=== PATIENT | female | born 1945 | race Caucasian/White ===

== ENCOUNTER 2016-10-02 14:18 | Inpatient (IN) ==
[2016-10-02] MEDS ORDERED: ASPIRIN PO STA (14:35)
[2016-10-02] MEDS ORDERED: XOPENEX NEB INH ONE (14:35)
--- NOTE | 2016-10-02 14:38 | PROVIDER DOCUMENTATION ---
HPI-Respiratory General - General Chief Complaint: Shortness of Breath Stated Complaint: sob Time Seen by Provider: 10/02/16 14:33 Source: patient Allergies/Adverse Reactions: Patient Allergies Allergy/AdvReac Type Severity Reaction Status Date / Time Sulfa (Sulfonamide Allergy Severe RASH Verified 10/02/16 15:31 Antibiotics) latex Allergy HIVES Verified 10/02/16 15:31 sulfamethoxazole Allergy RASH Verified 10/02/16 15:31 [From Bactrim] trimethoprim [From Bactrim] Allergy RASH Verified 10/02/16 15:31 Penicillins AdvReac Severe RASH Verified 10/02/16 15:31 Home Medications: Home Medication List Medication Instructions Recorded Confirmed Last Taken Type Magnesium Oxide [Mag-Ox] 400 mg PO DAILY 11/16/13 10/02/16 10/02/16 History Aspirin 81 mg PO DAILY 04/15/16 10/02/16 10/02/16 History Bisoprolol/Hctz [Ziac 5/6.25 mg] 1 each PO DAILY 04/15/16 10/02/16 10/02/16 History Ergocalciferol (Vitamin D2) 2,000 unit PO DAILY 04/15/16 10/02/16 10/02/16 History [Vitamin D2] Metformin [Glucophage] 500 mg PO WBREAKFAST 04/15/16 10/02/16 04/15/16 10:00 History Vitamin B Complex 1 each PO DAILY 04/15/16 10/02/16 10/02/16 History Dasatinib [Sprycel] 100 mg PO DAILY 10/02/16 10/02/16 10/02/16 History - History of Present Illness-Resp Nature of Presenting Problem: patient is a 70 y/o F that presents to the ER with shortness of breath that has progressively gotten worse over the week. She reports breathing is worse with exertion and laying flat. She denies fever/chills, cough, or chest pain. She reports that she feels like her lungs are being pulled down to her stomach. Her o2 saturation at triage was 74% on RA. patient reports symptoms have gotten worse past few days. She has seen who told her to take Mucinex. Today she didn't have it. Severity in ED: reports: moderate, severe Onset/Duration: reports: gradual, 4 days ago, 5 days ago Timing: reports: still present, getting worse Context: denies: out of meds, sports/exercise Cough Quality/Degree: reports: mild, dry cough Current Respiratory Medication Therapy: Initiated see nurses note Modifying Factors: worse with: exertion, lying down Associated Symptoms: reports: cough (mild dry), shortness of breath, short of breath. denies: fever/chills, hurts to breathe, nasal congestion, nasal drainage, wheezing Similar Symptoms Previously?: No Recently seen or treated by another doctor?: No Review of Systems - Adult - REVIEW OF SYSTEMS - ADULT Constitutional: denies: chills, fever Eyes: reports: no symptoms reported Ears, Nose, Mouth & Throat: reports: no symptoms reported Cardiovascular: reports: orthopnea. denies: chest pain, palpitations, syncope Respiratory: reports: cough, dyspnea on exertion, shortness of breath. denies: wheezing Gastrointestinal: denies: abdominal pain, diarrhea, nausea, vomiting Genitourinary: reports: no symptoms reported Musculoskeletal: denies: bone pain, muscle aches, neck pain Integumentary: reports: no symptoms reported Neurological: reports: no symptoms reported Psychiatric: reports: no symptoms reported Endocrine: reports: no symptoms reported Hematologic/Lymphatic: reports: no symptoms reported Allergic/Immunologic: reports: no symptoms reported All Other Systems: Reviewed and Negative Past History - Adult - PAST MEDICAL HISTORY-ADULT Review of Records: reports: Old Records Reviewed, Nursing Assessment Review, Medications Reviewed Cardiovascular: reports: HTN Endocrine/Immune: reports: Diabetes, Leukemia (CML) - PRIOR SURGERIES/PROCEDURES Surgical/Procedure History: reports: other (ut) - IMMUNIZATION STATUS Childhood Immunizations: See Nurse Assessment Flu Vaccine: See Nurse Assessment - FAMILY HISTORY Family History: reviewed, not pertinent - SOCIAL HISTORY Smoking: quit greater than 1 year, cigarettes Living Situation: family Physical Exam-General - PHYSICAL EXAM-ADULT Initial Vital Signs Reviewed: Yes - CONSTITUTIONAL General Appearance: alert, moderate distress - EYES Eyes: PERRL/EOMI, pink conjunctivae - HEAD, EARS, NOSE, MOUTH & THROAT HENMT: normocephalic/atraumatic, moist mucous membranes, normal ENT inspection - NECK Neck: full range of motion, normal inspection - RESPIRATORY Respiratory: respiratory distress (mild), decreased breath sounds (at bases, more on right then left), crackles - CARDIOVASCULAR Cardiovascular: regular rate, rhythm, no edema, no murmur - GASTROINTESTINAL (ABDOMEN) Abdominal Exam: normal bowel sounds, non tender, soft - MUSCULOSKELETAL Extremity: normal range of motion, normal inspection, no pedal edema, no calf tenderness - SKIN Integumentary: normal color, warm/dry - NEUROLOGIC Neurologic: grossly normal, no motor/sensory deficits - PSYCHIATRIC Psych/Mental Status: normal mood/affect, normal thought content, normal thought process, oriented x 3 Progress - PLAN OF CARE/RESULTS Progress/Plan/Lab Results: plan of care-labs, meds, cxr, ekg 1508- took abnormal ABGs, BiPaP will be set up Vital Signs Temp Pulse Resp BP Pulse Ox 10/02/16 17:01 53 L 22 104/71 98 10/02/16 15:58 49 L 22 117/70 97 10/02/16 14:40 88 19 96 10/02/16 14:21 97.5 F L 64 18 125/65 74 L Sulfa (Sulfonamide Antibiotics) Allergy (Severe, Verified 10/02/16 15:31) RASH latex Allergy (Verified 10/02/16 15:31) HIVES sulfamethoxazole [From Bactrim] Allergy (Verified 10/02/16 15:31) RASH trimethoprim [From Bactrim] Allergy (Verified 10/02/16 15:31) RASH Penicillins Adverse Reaction (Severe, Verified 10/02/16 15:31) RASH Magnesium Oxide [Mag-Ox] 400 mg PO DAILY 11/16/13 Aspirin 81 mg PO DAILY 04/15/16 Bisoprolol/Hctz [Ziac 5/6.25 mg] 1 each PO DAILY 04/15/16 Ergocalciferol (Vitamin D2) [Vitamin D2] 2,000 unit PO DAILY 04/15/16 Metformin [Glucophage] 500 mg PO WBREAKFAST 04/15/16 Vitamin B Complex 1 each PO DAILY 04/15/16 Dasatinib [Sprycel] 100 mg PO DAILY 10/02/16 Laboratory 10/02/16 10/02/16 10/02/16 15:20 15:20 15:20 WBC RBC Hgb Hct MCV MCH MCHC RDW Std Deviation Plt Count MPV Immature Gran % (Auto) Neut % (Auto) Lymph % (Auto) Sp[place]ding % (Auto) Eos % (Auto) Baso % (Auto) Immature Gran # (Auto) Neut # (Auto) Lymph # (Auto) Sp[place] # (Auto) Eos # (Auto) Baso # (Auto) PT 10.7 INR 1.02 PTT (Actin FS) 28.2 D-Dimer Specimen Type Sample Site pH pCO2 pO2 HCO3 Base Excess Oxyhemoglobin ABG O2 Sat (Calculated) ABG O2 Saturation ABG Carboxyhemoglobin ABG Methemoglobin Gustavo Test A-a O2 Difference Total Hemoglobin Lactate Liter Flow Blood Gas Modality FiO2 % Sodium Potassium Chloride Carbon Dioxide Anion Gap BUN Creatinine Estimated GFR/1.73 m2 BUN/Creatinine Ratio Glucose Calculated Osmolality Calcium Magnesium Total Bilirubin AST ALT Alkaline Phosphatase Creatine Kinase Creatine Kinase Index CK-MB (CK-2) Troponin T < 0.010 [id number]-Bjcdixkxwxz Pept 955 H Total Protein Albumin Globulin Albumin/Globulin Ratio 10/02/16 10/02/16 10/02/16 15:20 15:20 15:20 WBC 6.72 RBC 4.35 Hgb 14.3 Hct 43.9 MCV 100.9 H MCH 32.9 H MCHC 32.6 L RDW Std Deviation 16.6 H Plt Count 174 MPV 7.8 Immature Gran % (Auto) 0.0 Neut % (Auto) 54.6 Lymph % (Auto) 34.8 Spalding % (Auto) 10.1 H Eos % (Auto) 0.4 Baso % (Auto) 0.1 Immature Gran # (Auto) 0.00 Neut # (Auto) 3.66 Lymph # (Auto) 2.34 Spalding # (Auto) 0.68 H Eos # (Auto) 0.03 Baso # (Auto) 0.01 PT INR PTT (Actin FS) D-Dimer 0.21 Specimen Type Sample Site pH pCO2 pO2 HCO3 Base Excess Oxyhemoglobin ABG O2 Sat (Calculated) ABG O2 Saturation ABG Carboxyhemoglobin ABG Methemoglobin Gustavo Test A-a O2 Difference Total Hemoglobin Lactate Liter Flow Blood Gas Modality FiO2 % Sodium 141 Potassium 5.0 Chloride 97 L Carbon Dioxide 33 Anion Gap 11 BUN 10 Creatinine 0.8 Estimated GFR/1.73 m2 > 60 BUN/Creatinine Ratio 13 Glucose 111 H Calculated Osmolality 281 Calcium 9.3 Magnesium 2.3 Total Bilirubin 0.43 AST 36 H ALT 34 Alkaline Phosphatase 71 Creatine Kinase 186 H Creatine Kinase Index 3.2 H CK-MB (CK-2) 5.99 H Troponin T Qgj-M-Gdckexojkxn Pept Total Protein 8.0 Albumin 4.0 Globulin 4.0 Albumin/Globulin Ratio 1.0 10/02/16 14:55 WBC RBC Hgb Hct MCV MCH MCHC RDW Std Deviation Plt Count MPV Immature Gran % (Auto) Neut % (Auto) Lymph % (Auto) Spalding % (Auto) Eos % (Auto) Baso % (Auto) Immature Gran # (Auto) Neut # (Auto) Lymph # (Auto) Sp[place]ding # (Auto) Eos # (Auto) Baso # (Auto) PT INR PTT (Actin FS) D-Dimer Specimen Type ARTERIAL Sample Site R RADIAL pH 7.29 L pCO2 74 H* pO2 82 HCO3 29.6 H Base Excess 6.2 H Oxyhemoglobin 92.7 L ABG O2 Sat (Calculated) 18.7 ABG O2 Saturation 96.6 ABG Carboxyhemoglobin 2.70 H ABG Methemoglobin 1.3 Gustavo Test YES A-a O2 Difference 25.0 Total Hemoglobin 14.3 Lactate 0.50 Liter Flow 3.0 Blood Gas Modality CANNULA FiO2 % 32.0 Sodium Potassium Chloride Carbon Dioxide Anion Gap BUN Creatinine Estimated GFR/1.73 m2 BUN/Creatinine Ratio Glucose Calculated Osmolality Calcium Magnesium Total Bilirubin AST ALT Alkaline Phosphatase Creatine Kinase Creatine Kinase Index CK-MB (CK-2) Troponin T Brv-D-Lageqcwxuga Pept Total Protein Albumin Globulin Albumin/Globulin Ratio Orders Category Date Time Status Cardiac Monitoring DIRECTED Care 10/02/16 14:35 Active Saline Loc NOW Care 10/02/16 14:35 Active CHEST-PORTABLE [RAD] Stat Exams 10/02/16 14:36 Completed ABG [RESP] Routine Lab 10/02/16 14:55 Completed CBC WITH ELECTRONIC DIFF [HEME] Stat Lab 10/02/16 15:20 Completed CK PROFILE [SP CHEM] Stat Lab 10/02/16 15:20 Completed COMPREHENSIVE METABOLIC PANEL [CHEM] Stat Lab 10/02/16 15:20 Completed D-DIMER [CHEM] Stat Lab 10/02/16 15:20 Completed MAGNESIUM [CHEM] Stat Lab 10/02/16 15:20 Completed PRO B-NATRIURETIC PEPTIDE Stat Lab 10/02/16 15:20 Completed PROTIME WITH INR [COAG] Stat Lab 10/02/16 15:20 Completed PTT [COAG] Stat Lab 10/02/16 15:20 Completed TROPONIN T Stat Lab 10/02/16 15:20 Completed Aspirin Med 10/02/16 14:35 Discontinued 325 mg PO STAT STA Enalaprilat [Vasotec] Med 10/02/16 15:08 Discontinued 1.25 mg IV NOW ONE Hydrochlorothiazide Med 10/02/16 15:08 Discontinued 50 mg PO NOW ONE Levalbuterol Neb [Xopenex Neb] Med 10/02/16 14:35 Discontinued 1.25 mg INH NOW ONE Sodium Chloride 0.9% Neb [Ns Neb] Med 10/02/16 14:45 Active 5 ml INH DIRECTED Aerosol Treatments Routine Oth 10/02/16 14:35 Completed Aerosol Treatments Stat Oth 10/02/16 14:35 Completed BIPAP Stat Oth 10/02/16 15:09 Active EKG [EKG] Stat Ther 10/02/16 14:35 Draft - EKG 1 Time of EKG reading by physician:: 14:32 EKG Read and Signed by:: Rui Fink EKG Interpretation (*Must complete 3 of following elements*): Abnormal Rate: 56 Rhythm: sinus bradycardia QRS: normal ID Interval: normal ST Wave: non-specific ST changes Comments: LAE - XRAY 1 XRAY Study: Chest Impression: Abnormal XRAY Interpretation: critically low lung volumes, chf, atelectasis - CONSULTS/PCP/HOSPITALIST Notification #1 *Consult/PCP/Hospitalist*: ( section cutter for ) Time Discussed: 17:43 Reason/Comments: Heart Failure, Shortness of breath, Hypoxic Consult Disposition: Will see in ED, Admit Departure - Departure Time of Disposition Order: 16:40 DIAGNOSIS: Hypoxic Dyspnea Qualifiers: Dyspnea type: shortness of breath Qualified Code(s): R06.02 - Shortness of breath Heart failure Qualifiers: Heart failure type: systolic Heart failure chronicity: acute Qualified Code(s) : I50.21 - Acute systolic (congestive) heart failure Disposition: ADMITTED INPATIENT 09 Certified Medical Emergency: Emergent Condition: Stable Referrals: Rich Hernandez MD [Primary Care Provider] - - Critical Care Note Total Time (mins): 50 Critical Care Statement: This patient required my direct personal management to treat or rule out processes, the absence of which, could potentiallly result in sudden, clinically significant life or limb threatening deterioration. Attestation - Scribe Verification/Attestation Scribe:: Thomas Valladares Acting as Scribe for:: Rui Fink Scribe documention review:: This chart was documented by a scribe and accurately reflects the service the provider performed and the decisions made by the provider. Physician Attestation - Physician Attestation I, the provider, attest to the following statement:: Rui Fink Physician documentation Attestation:: This documentation recorded by the scribe accurately reflects the service I personally performed and the decisions made by me.
[2016-10-02] MEDS ORDERED: NS NEB INH SCH (14:45)
[2016-10-02 15:04] LABS: ALLEN TEST YES; BE 6.2 mmoll (-3.0-3.0); BLOOD TYPE ARTERIAL; DRAW SITE R RADIAL; METHB 1.3 % (0.0-1.5); O2(CT) 18.7 mL/dL (15.0-23.0); PO2(98.6) 82 mmHg (60-100); SAMPLE BLOOD; SAO2 96.6 % (95.0-100.0); THB 14.3 g/dL (11.5-17.4); pH(98.6) 7.29 (7.35-7.45)
[2016-10-02 15:06] LABS: MODALITY CANNULA
[2016-10-02] MEDS ORDERED: HYDROCHLOROTHIAZIDE PO ONE (15:08)
[2016-10-02] MEDS ORDERED: VASOTEC IV ONE (15:08)
[2016-10-02 15:11] LABS: PCO2(98.6) 74 mmHg (35-45)
--- NOTE | 2016-10-02 15:17 | Diag Imaging Result Document ---
PROCEDURE NAME: CHEST-PORTABLE - 10/02/2016 PORTABLE CHEST X-RAY: COMPARISON: None. FINDINGS: Lung volumes are critically low. There is cardiomegaly and pulmonary vascular congestion. There are nonspecific bilateral basilar infiltrates or edema. IMPRESSION: Nonspecific findings.
[2016-10-02 15:34] LABS: MANUAL DIFF NEEDED? NO
[2016-10-02 15:41] LABS: BASO% 0.1 % (0.0-0.8); EOS# 0.03 X1000 (0.0-0.7); EOS% 0.4 % (0.0-10.0); HEMATOCRIT 43.9 % (37.0-47.0); HEMOGLOBIN 14.3 g/dL (12.0-16.0); LYMPH# 2.34 X1000 (1.2-3.4); LYMPH% 34.8 % (20.5-51.1); MCH 32.9 PG (27-31); MCHC 32.6 g/dL (33-37); MCV 100.9 FL (81-99); MONO# 0.68 X1000 (0.11-0.59); MONO% 10.1 % (1.7-9.3); MPV 7.8 FL (7.4-10.4); NEUT% 54.6 % (42.2-75.2); PLT 174 X1000 (130-400); RBC 4.35 XMIL (4.2-5.4)
[2016-10-02 15:48] LABS: INR 1.02; PROTIME 10.7 Seconds (9.2-11.7); PTT 28.2 Seconds (22.0-36.0)
[2016-10-02 16:19] LABS: AGAP 11; ALKALINE PHOSPHATASE 71 U/L (32-104); BUN 10 mg/dL (8-22); CALCIUM 9.3 mg/dL (8.8-10.2); CHLORIDE 97 mmol/L (98-107); COSMO 281; GOT 36 U/L (10-30); GPT 34 U/L (10-36); MAGNESIUM 2.3 mg/dL (1.5-2.7); SODIUM 141 mmol/L (136-145); TCO2 33 mmol/L (25-35); TOTAL BILIRUBIN 0.43 mg/dL (0.20-1.00)
[2016-10-02 16:20] LABS: CK PROFILE 186 U/L (24-173)
--- NOTE | 2016-10-02 16:26 | EKG Report ---
Test Performed on : 10/02/2016 2:32:24 PM Test Reason : Chest Pain Blood Pressure : / mmHG Vent. Rate : 056 BPM Atrial Rate : 056 BPM P-R Int : 148 ms QRS Dur : 064 ms QT Int : 448 ms P-R-T Axes : 041 008 -04 degrees QTc Int : 432 ms Sinus bradycardia. Possible Left atrial enlargement Nonspecific ST abnormality Abnormal ECG When compared with ECG of 02-OCT-2016 14:31, (Unconfirmed) No significant change was found Unconfirmed Result
[2016-10-02 16:35] LABS: CK INDEX 3.2 (0.0-2.5); CK-MB 5.99 ng/mL (0.0-5.0)
--- NOTE | 2016-10-02 19:03 | HISTORY AND PHYSICAL ---
PAST MEDICAL HISTORY: This is a 70-year-old who I think is being treated for CML. She has a history of diabetes mellitus, history of uterine polyp, cataracts, hypertension. PAST SURGICAL HISTORY: Appendectomy in 1969. Drainage of carbuncle from right arm 1971. Urine polyp removed in 2012. Benign cataract extraction. Full mouth extraction with dental implants for dentures. SOCIAL HISTORY: She is . She lives with spouse. Number of children: 2. Former smoker. FAMILY HISTORY: Mother at 77, cause of was colon cancer. Father at age 68 from stroke. Two siblings 78 and 84 I think of old age. HISTORY OF PRESENT ILLNESS: The patient has complained of shortness of breath now progressing for the last week or so. I think she has been treated with some Mucomyst and had some upper respiratory congestion but it just seemed to get a little worse so she came in. I noticed her sats were low. O2 sats. Chest x-ray was performed with nonspecific finding. Lung volumes a little low. There is cardiomegaly and pulmonary vascular congestion nonspecific by basilar infiltrates. Denied any chest pain. PHYSICAL EXAMINATION: VITAL SIGNS: Blood pressure is 111/66, pulse 51, respirations 22. Weight is 5 foot 3 inches. FiO2 of 40%. HEENT: Pupils are equal, round. CVP less than 6 cm. LUNGS: Clear in all lung segura. CARDIOVASCULAR: Regular rhythm and rate without murmur or S3. ABDOMEN: Soft. SKIN: Warm and dry. LABORATORY: White blood cell count 6720, hematocrit 43, platelet count 174,000. Sodium 141, potassium 5.0, chloride 97, bicarb 33, BUN 10, creatinine 0.8. Liver functions unremarkable. AST 36, ALT 34, alkaline phosphatase 71, troponin less than 0.01. CPK 186, pro time 10.7, PTT 28. Blood gases: pH was 7.29, pCO2 74, PO2 was 82. O2 saturation 92%. That was at 32% nasal cannula. ASSESSMENT/PLAN: Pulmonary congestion, CO2 retention. Blood work suggests respiratory acidosis. Not impressed with the chest x-ray. Blood pressures look pretty good. She is on BiPAP and doing a little better. I do think we ought to check her left ventricular function and see how we do with a little bit of diuresis. We will check serial cardiac enzymes. cc: Gustavo Rubio MD
[2016-10-02] MEDS ORDERED: ZOFRAN IV PRN (19:52)
[2016-10-02] MEDS ORDERED: TYLENOL PO PRN (19:52)
[2016-10-02] MEDS: MUCINEX DM PO SCH (20:47)
[2016-10-02] MEDS: DEMADEX PO SCH (20:47)
[2016-10-02] MEDS: DUONEB (A & A) INH SCH (22:47)
[2016-10-02] MEDS: ADVAIR 250/50 DISKUS INH SCH (22:48)
[2016-10-03] MEDS ORDERED: NEO-SYNEPHRINE 50 MG in NS 250 ML IV SCH (00:15)
[2016-10-03 01:16] LABS: URINE CULTURE NEEDED? NO; URINE MICRO REVIEW NEEDED? NO; URINE SOURCE CATH
[2016-10-03 01:19] LABS: BILIRUBIN URINE NEGATIVE (NEGATIVE); BLOOD URINE NEGATIVE (NEGATIVE); COLOR YELLOW; GLUCOSE URINE NEGATIVE (NEGATIVE); LEUKOCYTES URINE NEGATIVE (NEGATIVE); NITRITE URINE NEGATIVE (NEGATIVE); PH URINE 5.5; PROTEIN URINE 30 mg/dL (NEGATIVE); SP GRAVITY URINE 1.009; TURBIDITY URINE CLEAR (CLEAR); UROBILINOGEN URINE NORMAL (NORMAL)
[2016-10-03 01:20] LABS: UR EPITHELIAL CELLS <10 /HPF (<10); URINE BACTERIA NEGATIVE /HPF; URINE RBC <10 /HPF (<10); URINE WBC <10 /HPF (<10)
[2016-10-03 01:20] LABS: ALLEN TEST YES; BE 6.3 mmoll (-3.0-3.0); BLOOD TYPE ARTERIAL; DRAW SITE R RADIAL; METHB 1.6 % (0.0-1.5); O2(CT) 18.1 mL/dL (15.0-23.0); PO2(98.6) 70 mmHg (60-100); SAMPLE BLOOD; SAO2 93.8 % (95.0-100.0); THB 14.3 g/dL (11.5-17.4); pH(98.6) 7.27 (7.35-7.45)
[2016-10-03 01:21] LABS: MODALITY BI PAP
[2016-10-03 01:24] LABS: PCO2(98.6) 79 mmHg (35-45)
[2016-10-03] MEDS: DUONEB (A & A) INH SCH ×6 (03:14→23:04)
[2016-10-03 04:48] LABS: BLOOD TYPE ARTERIAL; METHB 1.1 % (0.0-1.5); O2(CT) 23.7 mL/dL (15.0-23.0); PO2(98.6) 81 mmHg (60-100); SAMPLE BLOOD; SAO2 95.9 % (95.0-100.0); THB 18.2 g/dL (11.5-17.4); pH(98.6) 7.24 (7.35-7.45)
[2016-10-03 04:51] LABS: MODALITY BI PAP; PCO2(98.6) 83 mmHg (35-45)
[2016-10-03] MEDS: NS 1,000 ML IV SCH ×2 (05:01→16:07)
[2016-10-03] MEDS: ZOSYN 3.375 GM/NS 50 ML IV SCH ×4 (05:02→22:30)
[2016-10-03 05:40] LABS: MANUAL DIFF NEEDED? NO
[2016-10-03 05:42] LABS: EOS# 0.04 X1000 (0.0-0.7); EOS% 0.7 % (0.0-10.0); HEMATOCRIT 40.3 % (37.0-47.0); HEMOGLOBIN 13.1 g/dL (12.0-16.0); LYMPH# 1.86 X1000 (1.2-3.4); LYMPH% 30.4 % (20.5-51.1); MCH 33.2 PG (27-31); MCHC 32.5 g/dL (33-37); MCV 102.3 FL (81-99); MONO# 1.01 X1000 (0.11-0.59); MONO% 16.5 % (1.7-9.3); NEUT% 52.4 % (42.2-75.2); PLT 204 X1000 (130-400); RBC 3.94 XMIL (4.2-5.4)
[2016-10-03 05:56] LABS: CALCIUM 8.6 mg/dL (8.8-10.2); MAGNESIUM 2.2 mg/dL (1.5-2.7); POTASSIUM 4.5 mmol/L (3.5-5.1)
[2016-10-03] MEDS: VANCOMYCIN 1 GM/NS 250 ML IV SCH ×2 (05:59→16:42)
[2016-10-03] MEDS: ADVAIR 250/50 DISKUS INH SCH ×2 (07:31→20:00)
--- NOTE | 2016-10-03 07:58 | Diag Imaging Result Document ---
PROCEDURE NAME: CHEST-PORTABLE - 10/03/2016 PORTABLE CHEST X-RAY: COMPARISON: 10/02/2016. FINDINGS: There is very slight worsening in the bibasilar infiltrates. Heart size remains top normal. No pneumothorax. IMPRESSION: Severely low lung volumes. Worsening bibasilar infiltrates.
--- NOTE | 2016-10-03 08:39 | PROGRESS NOTE ---
DATE: 10/03/2016 SUBJECTIVE: Ms. Estrella had blood pressure drop during the night. I had given her some Demadex. We went the other direction and gave her a bolus of normal saline. Started her on normal saline. She said she slept through the night. Feels good. Her ABG still with CO2 retention, a little worse. The pH is 7.24, pCO2 83, PO2 81, O2 saturation 95%. That is on BiPAP, 40% FiO2, 18/8. Chest x-ray reviewed from yesterday: Severely low lung volumes, worsening basilar infiltrate. I started her on some empiric antibiotic. OBJECTIVE: General: On exam today, sitting up, feels good. Blood pressures have come back up for awhile. We had her on a pressor last night. Vital Signs: Temp 99.1 degrees, pulse 64, respirations 27, blood pressure 110/70 at the present time. HEENT: Pupils are equal. CVP less than 6 cm. Lungs: Clear anterolateral and posterior. Cardiovascular: Exam reveals regular rhythm and rate without murmur or S3. Abdomen: Soft. Skin: Warm and dry. ASSESSMENT AND PLAN: 1. Carbon dioxide retention hypoventilation. She looks comfortable. She has a respiratory acidosis. I am going to give her some volume. I think we need to look at her lungs a little better. I am going to get a CT angiogram. Asked Dr. Cota to help with evaluation treatment. I put her on some empiric antibiotics. She is technically immunocompromised with her acute myeloid leukemia and treatment and acute myeloid leukemia. 2. Acute myeloid leukemia. Her blood counts look good. Appears to be in remission. She takes Sprycel, which is dasatinib 100 mg daily. I may ask Dr. Keller to get involved with this, as well as oncology. Will discuss with Dr. Cota. Continue breathing treatments. Continue present intravenous fluid rate, empiric antibiotics.
--- NOTE | 2016-10-03 09:06 | EKG Report ---
Test Performed on : 10/03/2016 06:03:19 AM Test Reason : Heart Failure Admission Blood Pressure : / mmHG Vent. Rate : 064 BPM Atrial Rate : 064 BPM P-R Int : 160 ms QRS Dur : 068 ms QT Int : 446 ms P-R-T Axes : 030 003 -02 degrees QTc Int : 460 ms Normal sinus rhythm. Normal ECG When compared with ECG of 02-OCT-2016 14:32, (Unconfirmed) No significant change was found Confirmed by Ramiro HERZOG, Gustavo Patton ([id number]) on 10/03/2016 5:19:20 PM
[2016-10-03] MEDS ORDERED: LASIX IV ONE (09:27)
[2016-10-03] MEDS: MUCINEX DM PO SCH ×2 (09:41→21:41)
[2016-10-03] MEDS: GLUCOPHAGE PO SCH (09:41)
[2016-10-03] MEDS: MAG-OX PO SCH (09:41)
[2016-10-03] MEDS: SPRYCEL PO SCH (09:41)
[2016-10-03] MEDS: ASPIRIN PO SCH (09:41)
[2016-10-03] MEDS: VITAMIN D PO SCH (09:42)
[2016-10-03] MEDS: VICON-C PO SCH (09:42)
--- NOTE | 2016-10-03 09:43 | Diag Imaging Result Document ---
PROCEDURE NAME: ANGIOGRAM/PULMONARY ARTERIES - 10/03/2016 CT OF THE CHEST WITH INTRAVENOUS CONTRAST AND CLARITY: FINDINGS: There are large bilateral pleural effusions, somewhat more on the left than the right. Both lower lobes are completely atelectatic. There is considerable compressive atelectasis in both upper lobes and the right middle lobe. There are no filling defects in the pulmonary arteries. The aorta is not distended or dissected in appearance. There are some calcifications in the left main and left anterior descending coronary arteries. IMPRESSION: Large bilateral pleural effusions with extensive compressive atelectasis bilaterally.
[2016-10-03] MEDS: DEMADEX PO SCH (09:44)
[2016-10-03] MEDS: ZIAC 5/6.25 MG PO SCH (09:44)
--- NOTE | 2016-10-03 11:02 | CONSULTATION ---
DATE OF CONSULTATION: 10/03/2016 REQUESTING PHYSICIAN: Dr. Gustavo Rubio. REASON FOR CONSULTATION: Critical arterial blood gases to evaluate and treat. HISTORY OF PRESENT ILLNESS: Ms. Estrella is a 70-year-old white female with a 15 pack year history for tobacco (nonsmoker since 1978) who was diagnosed with CML in April of last year. The patient reports no prior pulmonary issues. The patient did have an episode of bradycardia in November 2013 and underwent a cardiac catheterization 11/16/2014, which revealed normal coronary arteries, normal LV function, with no significant valvular abnormalities. Patient reports over the last week she has had increasing shortness of breath and decreased exercise tolerance. She presented to the emergency room with shortness of breath. Oxygen saturation on room air was 74%. Chest x- ray revealed bibasilar infiltrates/effusions. CT pulmonary angiogram performed this morning revealed large bilateral pleural effusions with atelectasis of both lower lobes. PAST MEDICAL HISTORY: 1. 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 She is followed by Dr. Nolvia Red. 2. Hypertension. 3. Diabetes mellitus. CURRENT MEDICATIONS: Sprycel, vitamin D, 81 mg aspirin, Ziac 5/6.25, vitamin B complex, metformin, magnesium oxide. SOCIAL HISTORY: No significant alcohol use. Prior tobacco use as per above. FAMILY HISTORY: Noncontributory to current presentation. REVIEW OF SYSTEMS: As noted in the HPI. She reports increased shortness of breath without significant fevers, chills or cough. PHYSICAL EXAMINATION: General: Obese white female, on nasal cannula resting comfortably in no distress. Blood pressure 111/63, heart rate 66, respiration rate 16 and unlabored, oxygen saturation 92%. HEENT: Pupils are equal and reactive. Oropharynx is clear. Neck: Supple. Chest: Reveals diminished breath sounds in both lung bases. Cardiac: Regular rate. Normal S1, normal S2. Abdomen: Soft without hepatosplenomegaly. Extremities: Without significant edema. Neurologic: Cranial nerves 2-12 are grossly intact. LABORATORIES: White blood count 6.12, hemoglobin 13.1, platelet count 204,000. Chemistries: Sodium 139, potassium 4.5, chloride 98, serum bicarbonate 30, BUN 14, creatinine 1.0. ProBNP is 869. ARTERIAL BLOOD GAS: In the emergency room pH 7.29, pCO2 of 74, PO2 82. IMPRESSION: A 70-year-old with acute hypoxemic and acute hypercapnic respiratory failure, large bilateral pleural effusions, dyspnea, prior tobacco history, with chronic myeloid leukemia. With normal cardiac workup in the past, patient's presentation is most likely due to her medication associated with her CML which is known to cause severe fluid retention and pleural effusions. It can also cause pulmonary hypertension and cardiac dysfunction and therefore an echocardiogram is warranted. RECOMMENDATIONS: 1. Maintain oxygen saturation greater than 90%. Hypoxemia will promote additional fluid retention. 2. Diuretics as tolerated. 3. Echocardiogram as you have ordered. 4. Additional recommendations pending hospital course.
--- NOTE | 2016-10-03 14:30 | ECHO REPORT ---
ORDER DATE: 10/03/2016 MEASUREMENTS: Left ventricular end-diastolic diameter 3.5, end systolic diameter 2.0, posterior wall thickness 1.3, septal thickness 1.3, left atrium 4.6, aortic root 3.4 SUMMARY: 1. Technically difficult study. 2. Mild sclerosis of trileaflet aortic valve demonstrated with adequate aortic valve opening evident and peak systolic gradient across aortic valve of 17 mmHg. Mitral valve is without structural abnormality with trace mitral regurgitation. Tricuspid valve is without structural abnormality with mild tricuspid regurgitation. Estimated systolic PA pressure by Doppler is 45 mmHg. Pulmonic valve is without structural abnormality with trace pulmonic insufficiency. The aortic root is normal size. 3. Normal left ventricular chamber size with mild concentric left ventricular hypertrophy is demonstrated. The estimated left ventricular ejection fraction is 75%. No regional wall motion abnormalities are evident. Left atrium is moderately enlarged. Right atrium, right ventricle normal size with grossly preserved right ventricular systolic performance. 4. No pericardial effusion. 5. Appearance of inferior vena cava suggests normal central venous pressure. CONCLUSIONS: 1. Mild aortic valve sclerosis without stenosis. 2. Mild tricuspid regurgitation with estimated systolic PA pressure of 45 mmHg. 4. Mild left hypertrophy with hyperdynamic left ventricle. 5. Moderate left atrial enlargement. cc: MD Gustavo Gonzalez MD Russell T. Barr, MD MTDD
[2016-10-03] MEDS: LASIX IV SCH (19:47)
[2016-10-04] MEDS: LASIX IV SCH (02:30)
[2016-10-04] MEDS: DUONEB (A & A) INH SCH ×6 (03:15→22:20)
[2016-10-04] MEDS: ZOSYN 3.375 GM/NS 50 ML IV SCH ×4 (04:15→22:30)
[2016-10-04] MEDS: VANCOMYCIN 1 GM/NS 250 ML IV SCH ×2 (05:00→17:00)
[2016-10-04] MEDS: ADVAIR 250/50 DISKUS INH SCH ×2 (07:40→19:00)
[2016-10-04] MEDS: MUCINEX DM PO SCH ×2 (09:30→21:15)
[2016-10-04] MEDS: VITAMIN D PO SCH (09:30)
[2016-10-04] MEDS: GLUCOPHAGE PO SCH (09:30)
[2016-10-04] MEDS: ASPIRIN PO SCH (09:30)
[2016-10-04] MEDS: MAG-OX PO SCH (09:30)
[2016-10-04] MEDS: DEMADEX PO SCH (09:30)
[2016-10-04] MEDS: ZIAC 5/6.25 MG PO SCH (09:30)
[2016-10-04] MEDS: VICON-C PO SCH (09:30)
[2016-10-04] MEDS: SPRYCEL PO SCH (09:30)
--- NOTE | 2016-10-04 14:19 | PROGRESS NOTE ---
DATE: 10/04/2016 SUBJECTIVE: Ms. Edge feels much better. She slept well last night. Breathing comfortably. Remains in sinus rhythm. OBJECTIVE: Vital signs are stable. Lungs are clear in all lung segura. Cardiovascular: Regular rhythm and rate without murmur or S3. Abdomen is soft. Skin is warm and dry. ASSESSMENT AND PLAN: 1. Some pleural effusion. Pulmonary venous hypertension appears to be doing better. Suspect this may be just from a little pulmonary capillary weeping from her medication for her acute myelocytic leukemia. So, I think she can move to the floor. We will watch her on the monitor. Probably go home tomorrow if doing this well. 2. Acute myelocytic leukemia. Continue her present maintenance therapy. 3. Nutrition looks good. cc: MD Rich Spencer MD
[2016-10-05] MEDS: DUONEB (A & A) INH SCH ×6 (03:02→22:54)
[2016-10-05] MEDS: ZOSYN 3.375 GM/NS 50 ML IV SCH ×2 (03:55→09:59)
[2016-10-05] MEDS: VANCOMYCIN 1 GM/NS 250 ML IV SCH (04:17)
[2016-10-05] MEDS ORDERED: BLISTEX MEDICATED BERRY LIP BALM TOP PRN (07:26)
[2016-10-05] MEDS: ADVAIR 250/50 DISKUS INH SCH ×2 (07:40→19:42)
[2016-10-05 08:59] LABS: CALCIUM 8.3 mg/dL (8.8-10.2); MAGNESIUM 2.2 mg/dL (1.5-2.7); POTASSIUM 4.8 mmol/L (3.5-5.1)
[2016-10-05] MEDS: VICON-C PO SCH (09:07)
[2016-10-05] MEDS: MAG-OX PO SCH (09:07)
[2016-10-05] MEDS: VITAMIN D PO SCH (09:07)
[2016-10-05] MEDS: ASPIRIN PO SCH (09:07)
[2016-10-05] MEDS: DEMADEX PO SCH (09:07)
[2016-10-05] MEDS: ZIAC 5/6.25 MG PO SCH (09:07)
[2016-10-05] MEDS: GLUCOPHAGE PO SCH (09:07)
[2016-10-05] MEDS: SPRYCEL PO SCH (09:07)
[2016-10-05] MEDS: MUCINEX DM PO SCH ×2 (09:07→21:47)
--- NOTE | 2016-10-05 10:20 | PROGRESS NOTE ---
DATE: 10/05/2016 SUBJECTIVE: The patient is breathing better, feeling better but she still requires her O2, still having a drop in O2 saturations. PHYSICAL EXAMINATION: Vital Signs: Temperature 98, pulse 77, respirations 19, blood pressure 130/70. HEENT: Pupils were equal and round. CVP less than 6 cm. Lungs: Clear in all lung segura. Cardiovascular Examination: Regular rhythm and rate without murmur or S3. O2 saturation 96%. ASSESSMENT AND PLAN: 1. Acute hypoxemic and acute hypercapnic respiratory failure, large bilateral pleural effusion, and dyspnea. She is getting treatment for chronic myelocytic leukemia. Probably this is due to her medication for chronic myeloid leukemia which is known to cause fluid retention and pleural effusions. It can also cause pulmonary hypertension. 2. Cardiac dysfunction. Echocardiogram showed good left ventricular function. Did not see impressive pulmonary hypertension. She had a pulmonary angiogram which was large bilateral pleural effusions, compressive atelectasis bilaterally. Otherwise, really nothing. We are going to continue diuresis and see if we can wean her from the oxygen right now. She still required it. 3. Questionable pneumonia. We are going to treat her. Continue vancomycin and Zosyn. She does appear to be improving. She is getting Demadex 20 mg daily by mouth. 4. Diabetes mellitus type 2. Blood sugars appeared well-controlled. 5. I do want check her thyroid. Last night TSH was on 10/03/2016. We will check her thyroid again, B12 and folate. cc: MD Rich Spencer MD
--- NOTE | 2016-10-05 10:31 | Diag Imaging Result Document ---
PROCEDURE NAME: CHEST-2 VIEWS - 10/05/2016 CHEST 2 VIEWS: Compared with 10/03/2016. FINDINGS: There are persistent bibasilar opacities which appear to represent a combination of atelectasis and medium pleural effusions. The upper lungs appear grossly clear. There is no pneumothorax seen. IMPRESSION: Bibasilar atelectasis and medium bilateral pleural effusions.
[2016-10-05] MEDS ORDERED: LASIX IV SCH (15:45)
--- NOTE | 2016-10-05 15:58 | CONSULTATION ---
DATE OF CONSULTATION: 10/05/2016 CONCLUSION: Dr. Rubio asked me to see the patient about possible pneumonia. I think the patient does not have pneumonia at this time. She does not have a leukocytosis. The x-ray appearance shows atelectasis and pleural effusions rather than true infiltrates. The patient's creatinine is going up and her GFR is going down. This could be due to vancomycin or the combination of Zosyn and vancomycin. RECOMMENDATIONS: I would suggest stopping the patient's antibiotics at this time for 2 reasons, 1, it does not appear she has pneumonia and 2, the vancomycin and Zosyn may be contributing to her elevating creatinine. DISCUSSION: The patient was initially admitted to the hospital with dyspnea. This started about a month ago. She just started recently coughing up some sputum. It does not have any blood in it, it does not look like pus. She has not had fever. Chest x-ray shows bibasilar atelectasis and pleural effusions. The patient's CBC shows a white count of 6120, hemoglobin 13.1 and platelet count 204,000. Patient's blood gases show a pH of 7.24, PO2 of 81, pCO2 of 83. Creatinine is 1.2. GFR is 44. PAST MEDICAL HISTORY/REVIEW OF SYSTEMS: Eyes and ears: Patient has decreased hearing but her vision is okay. Neck: No stiffness. Respiratory: As mentioned above, the patient is not coughing. She is not having fever or chills. Cardiovascular: No chest pain or palpitations. GI: No nausea, vomiting, or diarrhea. : No dysuria or flank pain. Neurologic: No motor or sensory loss. No seizures. Bones, joints, muscles: The patient does not have any complaints of joint pain or myalgias. The remainder of the patient's review of systems was completed and was negative. PREVIOUS HOSPITALIZATIONS AND OPERATIONS: She has had an appendectomy. She has had a right axillary biopsy and also drainage of a right axillary carbuncle. She has had removal of uterine polyps. 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 She has had removal of uterine polyps. View did and on the previous hospitalizations operations as the previous hospitalizations operations patient has had an appendectomy in the right arm. MEDICAL DISEASES: Positive for hypertension, chronic myelogenous leukemia for which the patient is on chemotherapy, she also is obese. INFECTIOUS DISEASE HISTORY: Positive for pneumonia and right axillary carbuncle. FAMILY HISTORY: Positive for diabetes mellitus, hypertension, myocardial infarction, stroke and cancer. SOCIAL HISTORY: [place] She is retired, she is . She has a dog as a pet. ALLERGIES: She is allergic to penicillin and Septra. Should be noted that the patient is on Zosyn and is tolerating it well. Therefore I doubt that the patient is allergic to penicillin. I think the reaction she had as a child was due to one of the impurities that is present in early penicillin preparations and the patient does not truly have a penicillin allergy. Patient is also allergic to sulfa and latex. HOME MEDICATIONS: Include vitamin B complex, metformin, magnesium, vitamin D2, Sprycel, bisoprolol/hydrochlorothiazide which is Ziac and aspirin. PHYSICAL EXAMINATION: Vital signs: Temperature is 98 degrees, pulse 60, respirations 19, blood pressure 130/71. General: This is an obese, elderly female. She is in no acute distress. Head, eyes, ears, nose, and throat: No white patches were seen in the mouth. There were no ulcerations. She can hear my spoken words and see near objects. Neck: No meningismus. Respiratory: As mentioned above, the patient past month has been dyspneic. Cardiovascular: No chest pain or palpitations. GI: No nausea, vomiting, or diarrhea. : No dysuria or flank pain. Neurologic: No motor, sensory loss. No seizures. The patient is alert. She can move her extremities. There is no tremor. Her sensation is intact to touch. Her memory as regarding her medical history appeared intact. Integument: No rash noted. Thank you for the consult end dictation the. cc: MD Rich Bower MD
[2016-10-06] MEDS: DUONEB (A & A) INH SCH ×6 (03:12→23:22)
[2016-10-06 07:01] LABS: ALBUMIN 3.7 g/dL (3.5-5.0); MAGNESIUM 2.3 mg/dL (1.5-2.7); POTASSIUM 4.6 mmol/L (3.5-5.1); TOTAL BILIRUBIN 0.45 mg/dL (0.20-1.00); TOTAL PROTEIN 7.3 g/dL (6.3-8.3)
[2016-10-06 07:16] LABS: FREE T4 0.99 ng/dL (0.93-1.70)
[2016-10-06] MEDS: GLUCOPHAGE PO SCH (08:36)
[2016-10-06] MEDS: ZIAC 5/6.25 MG PO SCH (08:48)
[2016-10-06] MEDS: MUCINEX DM PO SCH ×2 (08:48→20:58)
[2016-10-06] MEDS: SPRYCEL PO SCH (08:48)
[2016-10-06] MEDS: VITAMIN D PO SCH (08:48)
[2016-10-06] MEDS: VICON-C PO SCH (08:48)
[2016-10-06] MEDS: ASPIRIN PO SCH (08:48)
[2016-10-06] MEDS: MAG-OX PO SCH (08:49)
[2016-10-06] MEDS: DEMADEX PO SCH (08:49)
--- NOTE | 2016-10-06 11:03 | PROGRESS NOTE ---
DATE: 10/06/2016 SUBJECTIVE: Ms. Estrella is breathing better. Feeling better. OBJECTIVE: Vital signs: Afebrile. Temp is 98.4 degrees, pulse 70, respirations 18, blood pressure 105/52. HEENT: Pupils are equal, round. Neck: CVP less than 6 cm. Lungs: Clear in all lung segura. Cardiovascular: Regular rhythm and rate without murmur or S3. Abdomen: Soft. Skin: Warm and dry. Intake and output: Urine output has been about 600 mL. LABS: This morning, sodium 142, potassium 4.6, chloride 97, bicarb 39, BUN 37, creatinine 1.3. Blood sugars 119, 111, 121. Review of her lab. Her thyroid looks good. Creatinine is 1.3 ASSESSMENT AND PLAN: 1. Possible pneumonia, bilateral pleural effusions. She does not have leukocytosis. X-ray appearance shows atelectasis, pleural effusions rather than infiltrates. Patient's creatinine seems to be going down. So, continue vancomycin. Dr. Keller changed her, I think, to cefepime. Clinically improving. 2. Echocardiogram shows good left ventricular function. 3. Diabetes mellitus type 2. Sugars look under good control. REVIEW OF ORDERS: Patient is on Demadex 20 mg daily; we will continue that. Metformin 500 mg daily, magnesium oxide 400 mg a day, guaifenesin 1 b.i.d., fluticasone salmeterol inhaler 1 puff b.i.d. She is still on her Sprycel, dasatinib 100 mg daily. We have stopped her antibiotic to see how we are doing. Do not see any definitive sign of infiltrate. cc: MD Rich Spencer MD
[2016-10-06] MEDS: ADVAIR 250/50 DISKUS INH SCH ×2 (11:04→19:15)
--- NOTE | 2016-10-06 16:00 | PROGRESS NOTE ---
DATE: 10/06/2016 PRESENT ILLNESS: I was asked see the patient yesterday about a possible pneumonia. I think that the patient does not have pneumonia. She does not have a leukocytosis. She does have a new chest x-ray from today that I do not have the results on but the 1 before today's showed atelectasis and pleural effusions but no infiltrates. Finally the patient may be having some side effect of the antibiotics mainly being elevated creatinine and a decrease in her GFR. MEDICATIONS: I stopped the patient's antibiotics yesterday. She feels good now and she has not had any fever. PHYSICAL EXAMINATION: Vital Signs: Temperature is 97.6 degrees, pulse 68, respirations 20, blood pressure 108/60. General: This is a somewhat ill-appearing and obese elderly female. She is in no acute distress. Lungs: Clear to auscultation. Cardiovascular: Regular heart rate. Abdomen: Soft and nontender. LAB AND X-RAY: The CBC and chest x-ray results are pending. The patient's creatinine has increased to 1.3. The GFR is 40. ASSESSMENT AND PLAN: As mentioned above, I do not think the patient has pneumonia. I am anxious to see the results of today's chest x-ray and CBC. For now, I do not think the patient needs any antibiotics. COMORBIDITIES: Include chronic myelogenous leukemia and chemotherapy. cc: MD Rich Bower MD
[2016-10-07] MEDS: DUONEB (A & A) INH SCH ×3 (03:20→11:44)
[2016-10-07] MEDS: MUCINEX DM PO SCH ×2 (08:04→21:50)
[2016-10-07] MEDS: ASPIRIN PO SCH (08:04)
[2016-10-07] MEDS: SPRYCEL PO SCH (08:04)
[2016-10-07] MEDS: VITAMIN D PO SCH (08:04)
[2016-10-07] MEDS: ZIAC 5/6.25 MG PO SCH (08:04)
[2016-10-07] MEDS: VICON-C PO SCH (08:04)
[2016-10-07] MEDS: GLUCOPHAGE PO SCH (08:04)
[2016-10-07] MEDS: MAG-OX PO SCH (08:04)
[2016-10-07] MEDS: DEMADEX PO SCH (08:04)
[2016-10-07] MEDS: ADVAIR 250/50 DISKUS INH SCH ×2 (08:07→19:20)
--- NOTE | 2016-10-07 08:08 | Diag Imaging Result Document ---
PROCEDURE NAME: CHEST-2 VIEWS - 10/06/2016 PA AND LATERAL RADIOGRAPH OF THE CHEST: COMPARISON: 10/05/2016. FINDINGS: Bilateral moderate sized pleural effusions with bibasilar atelectasis and/or infiltrate are essentially stable. No new consolidations are identified. Cardiac silhouette is stable. IMPRESSION: Stable chest.
[2016-10-07 08:20] LABS: MANUAL DIFF NEEDED? NO
[2016-10-07 08:25] LABS: BASO% 0.2 % (0.0-0.8); EOS# 0.07 X1000 (0.0-0.7); EOS% 1.3 % (0.0-10.0); HEMATOCRIT 38.3 % (37.0-47.0); HEMOGLOBIN 12.4 g/dL (12.0-16.0); LYMPH# 1.06 X1000 (1.2-3.4); LYMPH% 20.4 % (20.5-51.1); MCH 33.9 PG (27-31); MCHC 32.4 g/dL (33-37); MCV 104.6 FL (81-99); MONO# 0.69 X1000 (0.11-0.59); MONO% 13.3 % (1.7-9.3); MPV 7.9 FL (7.4-10.4); NEUT% 64.8 % (42.2-75.2); PLT 130 X1000 (130-400); RBC 3.66 XMIL (4.2-5.4)
--- NOTE | 2016-10-07 08:44 | PROGRESS NOTE ---
DATE: 10/07/2016 PRESENT ILLNESS: The patient had leukocytosis and was thought to possibly have had pneumonia as well. At this time, I do not think the patient has pneumonia and her last CBC did not show a leukocytosis. MEDICATIONS: The patient has been off antibiotics now for 2-3 days. She is not coughing. She is not having fever or chills. PHYSICAL EXAMINATION: Vital Signs: Temperature is 98.1 degrees, pulse 73, respirations 18, blood pressure 134/64. General: This is a somewhat ill-appearing, elderly, obese female who is in no acute distress. Lungs: Clear to auscultation. Cardiovascular: Regular heart rate. Abdomen: Soft and nontender. Ears, Nose, and Throat: No white patches on the tongue. She can hear my spoken words. LAB AND X-RAY: The patient had a chest x-ray ordered yesterday but I have not been able to find any results in the computer. I have also ordered a CBC for today and requested that the results be called to me. As for right now, I am not going to start any antibiotics on the patient. If the patient's chest x-ray does not show pneumonia and there is no leukocytosis on the CBC, then I think the patient can continue not to have to have any antibiotics at this time. COMORBIDITIES: Include chronic myelogenous leukemia and chemotherapy for the condition. ADDENDUM : Chest x-ray shows bibasilar effusions, atelectasis and/or infiltrates. CBC-WBC 5.2, hgb 12.4, platelets 130K. ASSESSMENT AND PLAN: Doubt pneumonia, no antibiotics indicated. Available prn. cc: MD Rich Bower MD MTDD
[2016-10-07] MEDS ORDERED: SOLU-MEDROL IV ONE (13:25)
[2016-10-08] MEDS: PREDNISONE PO SCH ×2 (06:53→11:35)
[2016-10-08 09:17] LABS: FLOW CYTOMETERY SOURCE PLEURAL FLUID; LEUKEMIA LYMPHOMA BY FLOW REFERRED FOR TESTING
--- NOTE | 2016-10-08 09:37 | Diag Imaging Result Document ---
PROCEDURE NAME: CHEST-2 VIEWS - 10/08/2016 FRONTAL AND LATERAL CHEST, TWO VIEWS: COMPARISON: 10/06/2016. FINDINGS: No postprocedural pneumothoraces. There are small pleural effusions which remain. There is also basilar atelectasis and possibly underlying infiltrates which persists. The upper lungs are clear. IMPRESSION: No postprocedural pneumothorax. The films were reviewed with Dr. Hernandez.
[2016-10-08 09:50] LABS: SPECIMEN PLEURAL FLUID
[2016-10-08] MEDS: ADVAIR 250/50 DISKUS INH SCH (10:01)
--- NOTE | 2016-10-08 10:15 | OPERATIVE NOTE ---
PROCEDURE DATE: 10/08/2016 PROCEDURE PERFORMED: Thoracentesis. CLINICAL INDICATIONS: A 70-year-old with CML with bilateral pleural effusions which did not resolve with diuretics. DESCRIPTION OF PROCEDURE: After informed consent was obtained, patient was brought to the ultrasound area where the procedure was performed. The patient had approximately equal pleural effusions bilaterally. The right side was prepped and draped in the usual sterile fashion. Local anesthesia was achieved with 1% lidocaine. Pleural fluid was identified with the anesthetic needle and it appeared grossly bloody. A catheter was introduced into the right hemithorax with the aid of a stainless steel trocar. When pleural fluid was identified, the catheter was advanced and the trocar was retracted. 900 mL of grossly bloody fluid was aspirated from the right hemithorax. Pleural fluid will be sent for chemistries, cultures and cytology. Pleural fluid will also be sent for flow cytometry with patient's history of CML. Postprocedure chest x-ray is pending. cc: MD Rich Bowers MD Heather Shah, MD
[2016-10-08 11:18] LABS: DIFF NEEDED? YES; WBC BF 900 /cumm
[2016-10-08 11:21] LABS: MONOS 85 %; POLYS 15 %
[2016-10-08] MEDS: MUCINEX DM PO SCH (11:35)
[2016-10-08] MEDS: ZIAC 5/6.25 MG PO SCH (11:35)
[2016-10-08] MEDS: GLUCOPHAGE PO SCH (11:35)
[2016-10-08] MEDS: MAG-OX PO SCH (11:35)
[2016-10-08] MEDS: VITAMIN D PO SCH (11:35)
[2016-10-08] MEDS: VICON-C PO SCH (11:35)
[2016-10-08] MEDS: DEMADEX PO SCH (11:35)
[2016-10-08] MEDS: ASPIRIN PO SCH (11:35)
[2016-10-08 11:41] LABS: TOTAL PROT BODY FLUID 4.2 g/dL
[2016-10-08 14:26] VITALS: BP 130/56
--- NOTE | 2016-10-09 05:45 | DISCHARGE SUMMARY ---
ADMISSION DATE: 10/02/2016 DISCHARGE DATE: 10/08/2016 FINAL DIAGNOSES: 1. Acute and chronic hypercarbic respiratory failure. 2. Chronic obstructive pulmonary disease. 3. Bilateral pleural effusions, probably due to adverse effect of medication and therapeutic use (Sprycel.) 4. Chronic myelogenous leukemia. 5. Type 2 diabetes mellitus. HISTORY OF PRESENT ILLNESS: Mrs. Estrella is a 70-year-old white female with an approximately 6 month history of chronic myelogenous leukemia. She was doing well at home on Sprycel, followed by Dr. Nolvia Red. She presented to the emergency room on 10/02/2016 with complaints of progressive shortness of breath over a week. Oxygen saturation in triage was 74 % on room air. Physical examination revealed decreased breath sounds in both lung bases. x-ray confirmed bilateral pleural effusions, moderate in size. Blood gas on 3 L nasal cannula was pH 7.29, pCO2 74, and PO2 82. Lactate level was 0.5. HOSPITAL COURSE: She was admitted to the medical floor and placed with vitals level pressure support ventilation. Subsequent ABG showed no improvement and the BiPAP was discontinued. She was seen in consultation by Dr. Cota, tightener. She had she had quit smoking over 30 years ago but did have approximately 15 pack year history of smoking from the mid 60s to late 70s, but has not previously been diagnosed with COPD. Certainly, her blood gases looked chronic and her previous chemistry profile shows an elevated CO2 consistent with metabolic compensation of chronic respiratory acidosis. She was somewhat overweight and there may be an element of Pickwickian syndrome as well. Obstructive sleep apnea is a consideration as well. An echocardiogram was felt to be a technically difficult study. The aortic valve appeared to open adequately. There is no major mitral or tricuspid problems as well. There was mild concentric left ventricular hypertrophy with an estimated ejection fraction of 75%, but no wall motion abnormalities were noted. Left atrium was moderately enlarged. Her oncologist Dr. Nolvia Red was consulted casually who felt that the Sprycel was likely the etiology of her effusions, and that further diseases such as congestive heart failure need not be invoked. Prior to discharge, she had a right thoracentesis done by Dr. Cota which revealed blood- tinged exudate with low white blood count with cultures are pending. She tolerated this well and has no evidence of pneumothorax. Dr. Cota felt she could return home. Dr. Red recommended low- dose steroids 40 mg a day for 7 days, and temporarily holding the Sprycel until she can follow up with her in the office in several days. She is discharged in improved condition , and is return to my office in 1-2 weeks. DISCHARGE MEDICATIONS: 1. Tylenol 650 mg q.6 hours as needed for pain. 2. Bisoprolol/hydrochlorothiazide 5/6.25 1 daily. 3. Metformin 500 mg daily with breakfast. 4. Prednisone 20 mg daily. 5. Torsemide 20 mg daily. 6. Vitamin B complex 1 daily. 7. Vitamin D 2000 units daily. 8. She is to discontinue the Sprycel. 9. Oxygen 2 liters/min. cc: MD Nolvia Norwood MD James E. Boyle, MD MTDHailey
== END 2016-10-08 16:44 | disposition home health service (06) ==
LOC: ED 14:18 → ICU 18:35 → 4N 10-05 18:19
PROVIDERS: ADMIT Internal Medicine; ATTEND Internal Medicine

== ENCOUNTER 2017-01-14 08:04 | Inpatient (IN) ==
[2017-01-14 09:13] LABS: MANUAL DIFF NEEDED? NO
[2017-01-14 09:14] LABS: BASO% 0.3 % (0.0-0.8); EOS# 0.09 X1000 (0.0-0.7); EOS% 1.3 % (0.0-10.0); HEMATOCRIT 33.2 % (37.0-47.0); HEMOGLOBIN 10.6 g/dL (12.0-16.0); IMM GRAN# 0.03 X1000 (0.0-0.04); IMM GRAN% 0.4 % (0.0-0.5); LYMPH# 1.52 X1000 (1.2-3.4); LYMPH% 22.7 % (20.5-51.1); MCH 31.5 PG (27-31); MCHC 31.9 g/dL (33-37); MCV 98.5 FL (81-99); MONO# 0.69 X1000 (0.11-0.59); MONO% 10.3 % (1.7-9.3); MPV 9.4 FL (7.4-10.4); PLT 197 X1000 (130-400); RBC 3.37 XMIL (4.2-5.4)
[2017-01-14 09:44] LABS: ALBUMIN 3.8 g/dL (3.5-5.0); CALCIUM 9.1 mg/dL (8.8-10.2); MAGNESIUM 2.3 mg/dL (1.5-2.7); POTASSIUM 4.4 mmol/L (3.5-5.1); TOTAL BILIRUBIN 0.77 mg/dL (0.20-1.00); TOTAL PROTEIN 7.6 g/dL (6.3-8.3)
--- NOTE | 2017-01-14 13:50 | CONSULTATION ---
DATE OF CONSULTATION: 01/14/2017 IMPRESSION: 1. Episode of near syncope just after standing up and walking to the service vehicle operator this morning. Consider possibility of orthostatic hypotension with current medical regimen including Ziac and loop diuretic. Consider also the possibility of bradyarrhythmia as patient recorded her pulse ox heart rate in the 30s and 40s transiently. However, ECG monitoring thus far has shown sinus rhythm with frequent ventricular ectopy at times which may potentially have caused her pulse ox to read a low pulse while her apical pulse was normal. 2. Chronic mild ascitic leukemia. 3. Hypertension. 4. Diabetes mellitus. 5. Development of bilateral pleural effusions and moderate pulmonary hypertension while on chemotherapy agent Sprycel for her CML. She had thoracentesis and Sprycel was discontinued. She has been on diuretic therapy since then. 6. Previous extensive cardiac evaluation for perceived slow pulse in spring including echocardiography, ambulatory ECG monitoring, stress myocardial fusion imaging and ultimately coronary angiography. She was found to have no significant structural heart disease. Coronary angiography reported normal coronaries. Left ventricular end-diastolic pressure at that time was 10. 7. Single episode of tachycardia noted on pulse ox lasting 6-8 hours in the past few weeks. The patient has had no palpitations. RECOMMENDATIONS: 1. Monitor on telemetry. 2. Discontinue Ziac and monitor blood pressure. 3. Repeat echocardiography to reassess pulmonary pressures and right ventricular function. 4. If blood pressure elevated, consider use of amlodipine or angiotensin receptor blocking agent. 5. Check orthostatic blood pressures. 6. Discontinue loop diuretic for now. HISTORY: This 71-year-old white female, with past history of hypertension, diabetes mellitus, type 2, and chronic myelocytic leukemia was admitted after an episode of near syncope. She relates that this morning she got up, showered and got dressed. She took some bird seed out to the bird feeder and also put the dog out. She had a cup of coffee and some oatmeal. After having her oatmeal she got up and started to put utensils in the service vehicle operator. She had been standing perhaps 3 seconds or so when she started to feel lightheaded. There was no chest pain or palpitations. She felt as if she might pass out. She coughed 3 or 4 times thinking this might help. Her lightheadedness slowly improved. She checked her pulse ox. It is noteworthy that she is on chronic oxygen therapy since this past spring when she presented with bilateral pleural effusions and moderate pulmonary hypertension which developed while she was on Sprycel for her CML. At any rate after her episode of lightheadedness she checked her pulse ox and noted that the pulse read as 37. This slowly increased to 54. There was no syncope. She summoned emergency medical personnel who brought her to the emergency room for evaluation. ECG monitoring has shown sinus rhythm with frequent PACs and PVCs. Heart rate has been around 50 beats per minute. She was subsequently admitted for further workup. It is noteworthy that since her hospitalization back in the spring for bilateral pleural effusions that developed while she was on Sprycel, she has been on torsemide 20 mg daily in addition to her Ziac. She actually has cut back on torsemide taking it perhaps every other day as she felt like her oxygenation had improved. PAST MEDICAL HISTORY: 1. Hypertension. 2. Type 2 diabetes mellitus. 3. Chronic myelocytic leukemia. 4. Obesity. 5. Some tendency for bradycardia reported in the past. 6. Previous cardiac evaluation spring was extensive and culminated and coronary angiography which is normal. 7. Gastroesophageal reflux. 8. Moderate pulmonary hypertension by echocardiography September 2016. This study was obtained to evaluate cardiac performance after patient presented with bilateral pleural effusions which developed while she was on Sprycel for her CML. PAST SURGICAL HISTORY INCLUDES: Removal of polyp from the uterus, appendectomy. She has history of previous smoking from 1963 to 1979 at a rate of about a half pack of cigarettes per day. She does not use alcohol. FAMILY HISTORY: Negative for premature coronary disease. REVIEW OF SYSTEMS: Pulmonary: Noteworthy for some chronic exertional dyspnea. She has required continuous home oxygen. She indicates that when she is not wearing her oxygen and just sitting still her oxygen saturation will be 93%. However, if she got up and did anything her oxygen saturation would drop to 85%. Therefore when she does activity she makes certain that she wears her oxygen. She also was oxygen near continuously and also at night. Gastrointestinal: Review of systems negative. Constitutional: Review of systems negative/noncontributory. Remainder of the review of systems negative/noncontributory with 14 total systems reviewed. PHYSICAL EXAM: This is an overweight older white female, in no distress.Vital Signs: As recorded. Noteworthy for heart rate of 54 with ECG monitor showing sinus bradycardia with frequent premature atrial complexes and occasional premature ventricular complex. HEENT: Extraocular movements intact. Mucous membranes moist. Neck: Supple. Jugular venous distention is evident consistent with central venous pressure 10. There are no carotid bruits. Chest: Clear to auscultation with somewhat diminished breath sounds diffusely. Cardiac Exam: Reveals a regular rate and rhythm with frequent extrasystole. No murmur or gallop could be appreciated. Abdomen: Soft, nontender. Bowel sounds normal. Extremities: Without edema. Neurologic Exam: Reveals her to be alert, fully oriented. Speech is fluent. Moves all 4 extremities equally well. Skin: Warm and dry. Psychiatric: Reveals her mood to be appropriate. A 12 lead EKG demonstrates sinus bradycardia with frequent premature ventricular complex. cc: MD Rich Gonzalez MD
--- NOTE | 2017-01-14 18:20 | HISTORY AND PHYSICAL ---
CHIEF COMPLAINT: "I nearly passed out." PRESENT ILLNESS: Mrs. Estrella is a 71-year-old woman with a recent history of chronic myelogenous leukemia and bilateral pleural effusions felt to be due to her previous therapy (Sprycel). This morning she got up at the usual time feeling well. 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 She denied any chest pain, shortness of breath. She felt like she was going to pass out but managed to sit down and use her pulse oximeter checked her oxygen and pulse. She has a history of COPD and is on home oxygen. Her pulse was as low as 38 or so. While standing up feeling weak she remembered reading somewhere about coughing so she coughed 3 or 4 times and then managed to sit down. She was brought to the emergency room by ambulance for evaluation where she was found to have a fairly slow pulse due to the intermittent episodes of bigeminy with a pulse in the mid to upper 30s, but often went up into the 50s and low 60s. She has been on Ziac (beta reji) for slightly more than a year for hypertension. She was hospitalized in 2013. She had an extensive cardiac evaluation by Dr. Peterson for bradycardia. She had an echocardiogram several months ago when the pleural effusions were found and this showed mitral valve sclerosis without stenosis, mild left ventricular hypertrophy with a hyperdynamic left ventricle, and moderate left atrial enlargement. PA pressure was estimated at 45 mmHg. PAST MEDICAL HISTORY: Positive for hypertension, type 2 diabetes mellitus. PAST SURGICAL HISTORY: Remarkable for appendectomy in 1969, uterine polypectomy 2012, and bilateral cataract extraction. HOME MEDICATIONS: Ziac 5 one daily, metformin 500 mg daily, aspirin 81 mg daily, vitamin D2 2000 units daily, vitamin B complex 1 daily, Tasigna 2 capsules twice a day, furosemide 40 mg daily, ferrous sulfate 325 mg twice a day. ALLERGIES: Sulfa drugs, latex, and penicillin. FAMILY HISTORY: Noncontributory. SOCIAL HISTORY: She is and lives with her . 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 She does not use alcohol or tobacco. She has a 15 pack year history of smoking years ago. REVIEW OF SYSTEMS: General: No fever, chills, night sweats, weight loss. HEENT: Vision and hearing are adequate without recent changes. Respiratory: She no longer feels chest tightness or fullness and has minimal if any shortness of breath with activities of daily living but continues to use oxygen due to persistent hypoxemia. Cardiovascular: No history of ischemic heart disease or myocardial infarction. No history of valvular heart disease or congestive heart failure. No palpitations, orthopnea, PND. No previous syncope. Gastrointestinal: Appetite is good. No nausea vomiting, diarrhea, or constipation. : No dysuria, hematuria, increased frequency of urination. Hematologic: Diagnosed with CML in March of 2016. Dr. Red has been treating her since and she remains slightly anemic but her white blood count has been responding very well to the kinase inhibitor. Neurologic: No history of strokes or seizures. PHYSICAL EXAMINATION: VITAL SIGNS: Temperature 98.0 degrees, blood pressure 121/50, pulse 53, respirations 21, O2 saturation is 96% on 2 L of nasal cannula oxygen. GENERAL APPEARANCE: Alert, pleasant, stocky, elderly woman who appears comfortable on a stretcher. SKIN: Warm, pink, and dry. Turgor is adequate. There is no visible rash. HEENT: Pupils equal, round, reactive to light. Extraocular movements intact. Oropharynx is benign. NECK: Supple. No adenopathy, JVD, or bruits. LUNGS: Clear to auscultation and percussion bilaterally. CARDIOVASCULAR: Regular rate and rhythm with occasional pauses. No S3, S4, murmurs. ABDOMEN: Soft, obese, and nontender with active bowel sounds. There is no guarding or rebound tenderness. EXTREMITIES: Ankles are slightly puffy but no pitting edema. Pedal pulses are 1 to 2+. Toes are pink and warm. NEUROLOGIC: She is alert and conversational with normal recent and remote memory. Cranial nerve examination is unremarkable. Speech is clear and well articulated with no facial asymmetry. She moves all extremities on command. Gait is not tested. ASSESSMENT: Classic syncopal type episode that she managed to abort by coughing with documented bradyarrhythmias. PLAN: She is on a beta reji and this will be stopped. I feel it is worthwhile to admit her overnight for observation and cardiac consultation. We will consider discharge in the morning if she remains stable. An echocardiogram was already scheduled as an outpatient but was fairly normal 3 months ago. Repeat chest x-ray to document resolution of her pleural effusion seems valdes. cc: Rich Hernandez MD
[2017-01-14] MEDS: PATIENT'S OWN MED PO SCH (22:01)
--- NOTE | 2017-01-15 06:24 | EKG Report ---
Test Performed on : 01/15/2017 06:03:39 AM Test Reason : bradycardia Blood Pressure : / mmHG Vent. Rate : 048 BPM Atrial Rate : 048 BPM P-R Int : 142 ms QRS Dur : 076 ms QT Int : 494 ms P-R-T Axes : -02 027 025 degrees QTc Int : 441 ms Sinus bradycardia. with premature atrial complexes. Otherwise normal ECG When compared with ECG of 14-JAN-2017 08:03, (Unconfirmed) premature ventricular complexes. are no longer present premature atrial complexes. are now present Confirmed by Eugenia Tolbert MD ([id number]) on 01/15/2017 1:07:42 PM
--- NOTE | 2017-01-15 06:52 | EKG Report ---
Test Performed on : 01/14/2017 08:03:33 AM Test Reason : NO ORDER Blood Pressure : / mmHG Vent. Rate : 057 BPM Atrial Rate : 057 BPM P-R Int : 126 ms QRS Dur : 068 ms QT Int : 474 ms P-R-T Axes : 011 021 015 degrees QTc Int : 461 ms Sinus bradycardia. with frequent premature ventricular complexes. Otherwise normal ECG When compared with ECG of 04-DEC-2016 08:21, premature ventricular complexes. are now present Unconfirmed Result
--- NOTE | 2017-01-15 08:20 | Diag Imaging Result Doc PS360 ---
EXAM: CHEST-2 VIEWS HISTORY: hypoxia TECHNIQUE: PA and lateral chest COMMENT: There are pleural fluid collections and/or pleural thickening bilaterally. The inspiration is generally less optimal than on 12/08/2016. There is apparent increase in atelectasis in the lingula and left lower lobe. IMPRESSION: Pleural thickening and/or effusions. Atelectasis and/or fibrosis particularly in the lingula and left lower lobe. Electronically signed by Ld Avalos 01/15/2017 8:18 AM
[2017-01-15] MEDS: GLUCOPHAGE PO SCH (09:32)
[2017-01-15] MEDS: ASPIRIN EC PO SCH (09:33)
[2017-01-15] MEDS: VICON-C PO SCH (09:33)
[2017-01-15] MEDS: VITAMIN D PO SCH (09:33)
[2017-01-15] MEDS: PATIENT'S OWN MED PO SCH ×2 (09:34→22:07)
--- NOTE | 2017-01-15 13:56 | PROGRESS NOTE ---
DATE: 01/15/2017 SUBJECTIVE: Patient continues asymptomatic from a cardiovascular standpoint. She has no dyspnea or chest discomfort on supplemental oxygen. Oxygen saturation ranges anywhere from 92-98% on nasal cannula oxygen at 2 L.Neck: Jugular venous pressure appears to be normal on inspection of neck veins. Chest: Clear to auscultation. Cardiac exam: Reveals a regular rate and rhythm without appreciable murmur or gallop. There is no evidence of peripheral edema. DIAGNOSTIC DATA: Chest x-ray reports pleural thickening and/or effusions. Atelectasis and/or fibrosis particularly in the lingula left lower lobe. IMPRESSION: 1. Recent episode of near syncope. Suspect more likely orthostatic hypotension or low blood pressure. 2. Chronic myelocytic leukemia. 3. Hypertension. 4. Diabetes mellitus. 5. Development of bilateral pleural effusions and moderate pulmonary hypertension while on chemotherapy with Sprycel for chronic myelogenous leukemia. Sprycel has been discontinued. Chest x-ray suggests some chronic pulmonary disease. 6. Previous extensive cardiac evaluation for perceived slow pulse in the spring including echocardiography, ambulatory ECG monitoring, stress myocardial perfusion imaging and ultimately coronary angiography. She was found to have no significant structural heart disease at that time. Coronary angiography reported normal. Left ventricular end-diastolic pressure at that time was 10. RECOMMENDATIONS: 1. Continue to monitor on telemetry another 24 hours. Continue off any hypertensive medications. If blood pressure elevates consider ARB. 2. Follow up echocardiography. cc: MD Rich Gonzalez MD
[2017-01-16] MEDS: GLUCOPHAGE PO SCH (09:38)
[2017-01-16] MEDS: PATIENT'S OWN MED PO SCH (09:38)
[2017-01-16] MEDS: VITAMIN D PO SCH (09:38)
[2017-01-16] MEDS: ASPIRIN EC PO SCH (09:38)
[2017-01-16] MEDS: VICON-C PO SCH (09:43)
--- NOTE | 2017-01-16 10:28 | ECHO REPORT ---
ORDER DATE: 01/14/2017 MEASUREMENTS: Left ventricular end-diastolic diameter 3.8. End systolic diameter 2.9. Septal thickness 1.1. Left atrium 5.2. Aortic root 3.7. SUMMARY: 1. Technically difficult study due to limited acoustic window quality. 2. Aortic valve is without structural abnormality. Peak gradient across the aortic valve is 14 mmHg. Mitral and tricuspid valves are without gross structural abnormality. Pulmonic valve is not well demonstrated. There is very mild mitral regurgitation, and mild tricuspid regurgitation. Estimated systolic PA pressure by Doppler is 50-55 mmHg. Suggesting moderate pulmonary hypertension. The aortic root is normal in size. 3. Normal left ventricular dimensions suggested. Estimated left ejection fraction appears to be at least 60%. Grade 1 left ventricular diastolic dysfunction demonstrated. Left atrium is moderately enlarged. Right atrium and right ventricle are normal in size with grossly preserved right ventricular systolic function. 4. No pericardial effusion. 5. Appearance of inferior vena cava suggests elevated central venous pressure. CONCLUSIONS: 1. Technically difficult study. 2. Very mild mitral regurgitation. 3. Mild tricuspid regurgitation with moderate pulmonary hypertension by Doppler. 4. Estimated left ejection fraction at least 60%. 5. Grade 1 left ventricular diastolic dysfunction. 6. Moderate left atrial enlargement. 7. Elevated central venous pressure suggested. cc: MD Rcih Gonzalez MD
[2017-01-16 12:18] VITALS: BP 131/55
--- NOTE | 2017-01-17 06:44 | DISCHARGE SUMMARY ---
ADMISSION DATE: 01/14/2017 DISCHARGE DATE: 01/16/2017 FINAL DIAGNOSES: 1. Syncope. 2. Bradycardia, probably related to beta reji. 3. Essential hypertension. 4. Chronic myelogenous leukemia in partial remission with medication. 5. Chronic lung disease with hypoxemia. 6. Bilateral pleural effusions, improving. PRESENT ILLNESS: Ms. Estrella is a 71-year-old woman with a complicated past medical history who presented to the emergency room on the day of admission after nearly passing out at home. 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 She intentionally coughed several times and was able to sit down and did not totally pass out. She is on chronic home O2 for hypoxemia and chronic lung disease. Checked her oxygen with her O2 sensor oximeter and noted a pulse rate of 38. She was brought to the emergency room by ambulance and monitoring there showed sinus rhythm with frequent episodes of bigeminy with an effective heart rate in the high 30s. Medication review documented that she has been on bisoprolol/hydrochlorothiazide for approximately a year and a half for hypertension. PHYSICAL EXAMINATION: See admission history and physical. LABORATORY: Electrolytes are unremarkable. EKG: Sinus bradycardia with premature ventricular contractions. HOSPITAL COURSE: She was admitted to CICU on cutter v groove in the bisoprolol was held. She was seen in consultation by Dr. Cortes, district sales representative. It was noted that she has had an extensive cardiac workup in 2013 with nuclear stress test, echocardiogram, left heart catheterization. Also, significant heart disease was found and we felt this was probably related to her beta- reji. She continued to have occasional premature ventricular contractions but no ventricular tachycardia or other worrisome arrhythmias. Her blood pressure remained under good control off of the Ziac. A chest x-ray showed improvement in her pleural effusions compared to 4 months ago but basic stability since 6 weeks ago. An echocardiogram was performed but the report is pending. DISCHARGE INSTRUCTIONS: She is return to my office as previously scheduled in 3 weeks. She has appointments to see Dr. Red sooner. DISCHARGE MEDICATIONS: Unchanged from admission except to discontinue the Ziac. cc: MD Nolvia Norwood MD
== END 2017-01-16 14:18 | disposition home or self-care (01) ==
LOC: SUPCPDRO → ED 08:04 → 3S 09:37
PROVIDERS: ADMIT Internal Medicine; ATTEND Internal Medicine

== ENCOUNTER 2017-01-18 14:34 | Inpatient (IN) ==
[2017-01-18] MEDS ORDERED: CARDIZEM IV ONE ×2 (15:09→15:49)
[2017-01-18] MEDS ORDERED: NS 500 ML IV ONE (15:09)
[2017-01-18 15:27] LABS: MANUAL DIFF NEEDED? NO
[2017-01-18 15:29] LABS: BASO% 0.5 % (0.0-0.8); EOS# 0.08 X1000 (0.0-0.7); EOS% 1.1 % (0.0-10.0); HEMATOCRIT 33.1 % (37.0-47.0); HEMOGLOBIN 10.5 g/dL (12.0-16.0); IMM GRAN# 0.02 X1000 (0.0-0.04); IMM GRAN% 0.3 % (0.0-0.5); LYMPH# 1.83 X1000 (1.2-3.4); LYMPH% 24.8 % (20.5-51.1); MCH 31.3 PG (27-31); MCHC 31.7 g/dL (33-37); MCV 98.8 FL (81-99); MONO# 0.77 X1000 (0.11-0.59); MONO% 10.4 % (1.7-9.3); MPV 9.1 FL (7.4-10.4); NEUT% 62.9 % (42.2-75.2); PLT 212 X1000 (130-400); RBC 3.35 XMIL (4.2-5.4)
[2017-01-18 15:43] LABS: INR 0.98; PROTIME 10.3 Seconds (9.2-11.7); PTT 26.9 Seconds (22.0-36.0)
[2017-01-18] MEDS ORDERED: CARDIZEM 100 MG/NS 100 MG/100 ML IVPB IV SCH (15:49)
--- NOTE | 2017-01-18 15:53 | Diag Imaging Result Doc PS360 ---
EXAM: CHEST-PORTABLE HISTORY: SOB TECHNIQUE: Portable upright AP COMPARISON: 01/15/2017 FINDINGS: There is decreased atelectasis and infiltrates in the lower left lung on the current study. Small bilateral pleural effusions persist. Heart remains mildly prominent. The lung apices remain clear. IMPRESSION: Mild interval improvement. Electronically signed by Fran Whiteside 01/18/2017 3:51 PM
[2017-01-18 15:57] LABS: ALBUMIN 3.7 g/dL (3.5-5.0); CALCIUM 9.5 mg/dL (8.8-10.2); POTASSIUM 4.1 mmol/L (3.5-5.1); TOTAL BILIRUBIN 1.07 mg/dL (0.20-1.00); TOTAL PROTEIN 8.1 g/dL (6.3-8.3)
--- NOTE | 2017-01-18 17:01 | PROVIDER DOCUMENTATION ---
This chart was entered by Christie Urban Scribe, acting as scribe for Isabela Coffey MD. HPI-Cardiac General - General Chief Complaint: Palpitations Stated Complaint: ELEVATED HEART RATE Time Seen by Provider: 01/18/17 14:49 Source: patient Allergies/Adverse Reactions: Patient Allergies Allergy/AdvReac Type Severity Reaction Status Date / Time Sulfa (Sulfonamide Allergy Severe RASH Verified 01/14/17 08:17 Antibiotics) latex Allergy Intermediate HIVES Verified 01/14/17 08:17 sulfamethoxazole Allergy Intermediate RASH Verified 01/14/17 08:17 [From Bactrim] trimethoprim [From Bactrim] Allergy Intermediate RASH Verified 01/14/17 08:17 Penicillins AdvReac Severe RASH Verified 01/14/17 08:17 Home Medications: Home Medication List Medication Instructions Recorded Confirmed Last Taken Type Aspirin [Ecotrin] 81 mg PO DAILY 01/14/17 01/14/17 01/14/17 07:00 History Cholecalciferol (Vitamin D3) 2 cap PO DAILY 01/14/17 01/14/17 01/14/17 07:00 History [Vitamin D3] Ferrous Sulfate 325 mg PO BID 01/14/17 01/14/17 01/14/17 07:00 History Furosemide [Lasix] 40 mg PO DAILY 01/14/17 01/14/17 01/12/17 06:00 History Magnesium Oxide [Mag-Ox] 400 mg PO DAILY 01/14/17 01/14/17 01/14/17 07:00 History Metformin [Glucophage] 2 tab PO WSUPPER 01/14/17 01/14/17 01/13/17 05:00 History Nilotinib HCl [Tasigna] 2 cap PO BID 01/14/17 01/14/17 01/14/17 10:00 History Vitamin B Complex [Balanced B-100] 1 each PO DAILY 01/14/17 01/14/17 01/14/17 07 :00 History - History of Present Illness-Cardiac Nature of Presenting Problem: 71 yo F presents to the ER with complaint of sudden episode of SOB, low O2 sat and elevated HR. Pt states she called Dr. Juarez (principal solutions architect for Dr. Hernandez) and he advised her to come to ER to ensure she was not in a-fib. Pt wears 2L of O2 at home. Denies having any CP, states she had a slight feeling of palpitation earlier. Was discharged from the hospital x2 days ago for low HR. Pt had an echo done x3 days ago. Onset/Duration: 1-3 hours ago History of arrythmia: reports: none Recent use of:: reports: no stimulants Nitro Today/Relief: reports: no nitro taken today Associated Symptoms: reports: diaphoresis, shortness of breath. denies: fever/ chills, nausea, vomiting Review of Systems - Adult - REVIEW OF SYSTEMS - ADULT Constitutional: denies: chills, fever Eyes: reports: no symptoms reported Ears, Nose, Mouth & Throat: reports: no symptoms reported Cardiovascular: reports: palpitations. denies: chest pain Respiratory: reports: shortness of breath. denies: cough, wheezing Gastrointestinal: denies: abdominal pain, diarrhea, nausea, vomiting Genitourinary: reports: no symptoms reported Musculoskeletal: reports: no symptoms reported Integumentary: reports: no symptoms reported Neurological: reports: no symptoms reported Psychiatric: reports: no symptoms reported Endocrine: reports: no symptoms reported Hematologic/Lymphatic: reports: no symptoms reported Allergic/Immunologic: reports: no symptoms reported All Other Systems: Reviewed and Negative Past History - Adult - PAST MEDICAL HISTORY-ADULT Review of Records: reports: Nursing Assessment Review, Medications Reviewed Cardiovascular: reports: HTN Endocrine/Immune: reports: Diabetes, Leukemia (CML) - PRIOR SURGERIES/PROCEDURES Surgical/Procedure History: reports: other (ut) - IMMUNIZATION STATUS Childhood Immunizations: See Nurse Assessment Flu Vaccine: See Nurse Assessment Physical Exam-General - PHYSICAL EXAM-ADULT Initial Vital Signs Reviewed: Yes - CONSTITUTIONAL General Appearance: alert, no apparent distress - EYES Eyes: PERRL/EOMI, pink conjunctivae - HEAD, EARS, NOSE, MOUTH & THROAT HENMT: normocephalic/atraumatic, normal ENT inspection - NECK Neck: supple, normal inspection - RESPIRATORY Respiratory: chest non-tender, lungs clear, no respiratory distress, no accessory muscle use - CARDIOVASCULAR Cardiovascular: normal peripheral pulses, no edema, tachycardia - GASTROINTESTINAL (ABDOMEN) Abdominal Exam: normal bowel sounds, non tender, soft - MUSCULOSKELETAL Back Exam: no CVA tenderness, no vertebral tenderness Extremity: normal gait, normal inspection - SKIN Integumentary: normal color, warm/dry - NEUROLOGIC Neurologic: grossly normal, no motor/sensory deficits - PSYCHIATRIC Psych/Mental Status: normal mood/affect, normal thought content, normal thought process, oriented x 3 Progress - PLAN OF CARE/RESULTS Progress/Plan/Lab Results: Vital Signs - 8 hr 01/18/17 14:38 01/18/17 15:20 Temperature 98.7 F Pulse Rate 153 H 114 H Respiratory Rate 20 20 Blood Pressure 135/97 115/79 O2 Sat by Pulse Oximetry 94 L 94 L Laboratory Results - last 24 hr 01/18/17 01/18/17 01/18/17 15:16 15:16 15:16 WBC 7.37 RBC 3.35 L Hgb 10.5 L Hct 33.1 L MCV 98.8 MCH 31.3 H MCHC 31.7 L RDW Std Deviation 14.2 Plt Count 212 MPV 9.1 Immature Gran % (Auto) 0.3 Neut % (Auto) 62.9 Lymph % (Auto) 24.8 [place] % (Auto) 10.4 H Eos % (Auto) 1.1 Baso % (Auto) 0.5 Immature Gran # (Auto) 0.02 Neut # (Auto) 4.63 Lymph # (Auto) 1.83 [place] # (Auto) 0.77 H Eos # (Auto) 0.08 Baso # (Auto) 0.04 PT INR PTT (Actin FS) Sodium 138 Potassium 4.1 Chloride 101 Carbon Dioxide 28 Anion Gap 9 BUN 20 Creatinine 1.0 H Estimated GFR/1.73 m2 55 BUN/Creatinine Ratio 20 Glucose 128 H Calculated Osmolality 280 Calcium 9.5 Magnesium 2.0 Total Bilirubin 1.07 H AST 31 H ALT 35 Alkaline Phosphatase 71 Creatine Kinase 79 Troponin T Qdk-Q-Fbaitlxocqa Pept 853 H Total Protein 8.1 Albumin 3.7 Globulin 4.4 Albumin/Globulin Ratio 0.8 01/18/17 01/18/17 15:16 15:16 WBC RBC Hgb Hct MCV MCH MCHC RDW Std Deviation Plt Count MPV Immature Gran % (Auto) Neut % (Auto) Lymph % (Auto) [place] % (Auto) Eos % (Auto) Baso % (Auto) Immature Gran # (Auto) Neut # (Auto) Lymph # (Auto) [place] # (Auto) Eos # (Auto) Baso # (Auto) PT 10.3 INR 0.98 PTT (Actin FS) 26.9 Sodium Potassium Chloride Carbon Dioxide Anion Gap BUN Creatinine Estimated GFR/1.73 m2 BUN/Creatinine Ratio Glucose Calculated Osmolality Calcium Magnesium Total Bilirubin AST ALT Alkaline Phosphatase Creatine Kinase Troponin T < 0.010 Cye-H-Aknjkpuccsd Pept Total Protein Albumin Globulin Albumin/Globulin Ratio Orders Category Date Time Status Cardiac Monitoring DIRECTED Care 01/18/17 15:08 Active Saline Loc NOW Care 01/18/17 15:08 Active CHEST-PORTABLE [RAD] Stat Exams 01/18/17 15:09 Completed CBC WITH ELECTRONIC DIFF [HEME] Stat Lab 01/18/17 15:16 Completed CK PROFILE [SP CHEM] Stat Lab 01/18/17 15:16 Completed COMPREHENSIVE METABOLIC PANEL [CHEM] Stat Lab 01/18/17 15:16 Completed MAGNESIUM [CHEM] Stat Lab 01/18/17 15:16 Completed PRO B-NATRIURETIC PEPTIDE Stat Lab 01/18/17 15:16 Completed PROTIME WITH INR [COAG] Stat Lab 01/18/17 15:16 Completed PTT [COAG] Stat Lab 01/18/17 15:16 Completed TROPONIN T Stat Lab 01/18/17 15:16 Completed 0.9% Sodium Chloride Inj [Ns] 500 ml Med 01/18/17 15:09 Discontinued IV 999 mls/hr Diltiazem 100 mg/Ns [Cardizem 100 mg/Ns] Med 01/18/17 15:49 Active 100 mg in 100 ml IV Per Protocol Diltiazem [Cardizem] Med 01/18/17 15:09 Discontinued 10 mg IV NOW ONE Diltiazem [Cardizem] Med 01/18/17 15:49 Discontinued 10 mg IV NOW ONE EKG [EKG] Stat Ther 01/18/17 14:44 Ordered EKG [EKG] Stat Ther 01/18/17 15:08 Ordered Laboratory Tests 01/18/17 01/18/17 01/18/17 15:16 15:16 15:16 WBC 7.37 RBC 3.35 L Hgb 10.5 L Hct 33.1 L MCV 98.8 MCH 31.3 H MCHC 31.7 L RDW Std Deviation 14.2 Plt Count 212 MPV 9.1 Immature Gran % (Auto) 0.3 Neut % (Auto) 62.9 Lymph % (Auto) 24.8 [place] % (Auto) 10.4 H Eos % (Auto) 1.1 Baso % (Auto) 0.5 Immature Gran # (Auto) 0.02 Neut # (Auto) 4.63 Lymph # (Auto) 1.83 [place] # (Auto) 0.77 H Eos # (Auto) 0.08 Baso # (Auto) 0.04 PT INR PTT (Actin FS) Sodium 138 Potassium 4.1 Chloride 101 Carbon Dioxide 28 Anion Gap 9 BUN 20 Creatinine 1.0 H Estimated GFR/1.73 m2 55 BUN/Creatinine Ratio 20 Glucose 128 H Calculated Osmolality 280 Calcium 9.5 Magnesium 2.0 Total Bilirubin 1.07 H AST 31 H ALT 35 Alkaline Phosphatase 71 Creatine Kinase 79 Troponin T Sek-W-Lxogqivkcyi Pept 853 H Total Protein 8.1 Albumin 3.7 Globulin 4.4 Albumin/Globulin Ratio 0.8 01/18/17 01/18/17 15:16 15:16 WBC RBC Hgb Hct MCV MCH MCHC RDW Std Deviation Plt Count MPV Immature Gran % (Auto) Neut % (Auto) Lymph % (Auto) [place] % (Auto) Eos % (Auto) Baso % (Auto) Immature Gran # (Auto) Neut # (Auto) Lymph # (Auto) [place] # (Auto) Eos # (Auto) Baso # (Auto) PT 10.3 INR 0.98 PTT (Actin FS) 26.9 Sodium Potassium Chloride Carbon Dioxide Anion Gap BUN Creatinine Estimated GFR/1.73 m2 BUN/Creatinine Ratio Glucose Calculated Osmolality Calcium Magnesium Total Bilirubin AST ALT Alkaline Phosphatase Creatine Kinase Troponin T < 0.010 Nha-E-Mlazacjnjwt Pept Total Protein Albumin Globulin Albumin/Globulin Ratio Result Diagrams: 01/18/17 15:16 01/18/17 15:16 - EKG 1 Time of EKG reading by physician:: 14:46 EKG Read and Signed by:: Isabela Coffey EKG Interpretation (*Must complete 3 of following elements*): Abnormal Rate: 139 Rhythm: undetermined rhythm [place]: normal QRS: normal RI Interval: normal ST Wave: non-specific ST changes 2 Time of EKG reading by physician:: 17:00 Prior EKG Comparison: changes noted Comments: a fib with controlled rate - XRAY 1 XRAY Study: Chest Impression: See EMR Report (mild interval improvement, per radiologist) - CONSULTS/PCP/HOSPITALIST Notification #1 *Consult/PCP/Hospitalist*: DR Juarez Time Discussed: 16:59 Consult Disposition: Will see in ED, Admit Departure - Departure Date of Disposition Decision: 01/18/17 Time of Disposition Decision: 16:59 DIAGNOSIS: New onset a-fib, Shortness of breath Dyspnea Qualifiers: Dyspnea type: unspecified Qualified Code(s): R06.00 - Dyspnea, unspecified Disposition: ADMITTED INPATIENT 09 Certified Medical Emergency: Emergent Condition: Fair Referrals and Follow-Ups: Rich Hernandez MD [Primary Care Provider] - - Critical Care Note This patient required my direct & personal management of CC.: No This chart was documented by the indicated scribe, (Christie Urban Scribe) and accurately reflects the services I performed and decisions made by me, Isabela Coffey MD, as attested by the provider's signature.
[2017-01-18] MEDS ORDERED: TYLENOL PO PRN (18:59)
[2017-01-18] MEDS ORDERED: LOVENOX 1 MG/KG SUBQ SCH (18:59)
[2017-01-18] MEDS: LOVENOX SUBQ SCH (20:18)
[2017-01-18] MEDS: GLUCOPHAGE PO SCH (20:18)
[2017-01-18] MEDS: PATIENT'S OWN MED PO SCH (22:00)
[2017-01-18] MEDS: HUMALOG SUBQ SCH (23:42)
--- NOTE | 2017-01-19 00:20 | HISTORY AND PHYSICAL ---
PRIMARY CARE PHYSICIAN: Dr. Jaron Hernandez. CHIEF COMPLAINT: Tachycardia. HISTORY OF PRESENT ILLNESS: A 71-year-old white female with past medical history significant for chronic myelogenous leukemia, COPD, type 2 diabetes, and hypertension presents for evaluation of above-mentioned symptoms. Pertinent history of present illness began on 01/14/2017. At that time patient experienced a near syncopal episode. The patient presented to the emergency department. Upon arrival, patient was noted to have heart rates in the 30s. Cardiology was consulted. It was ultimately felt the bradycardia and near syncopal episode was likely secondary to Ziac use. Patient's Ziac was discontinued. She was discharged home on 01/16/2017. The patient states that she had been doing very well at home until approximately noon today. The patient states she and her went to [employer]. Upon returning home, she noted increasing shortness of breath with minimal exertion. The patient has chronic hypoxia thus she checked her pulse oxygenation. Patient was found to have adequate oxygenation, but heart rate was noted to be 144. She waited approximately 1 hour. Unfortunately, heart rate remained elevated. She contacted me and I encouraged patient to go to the emergency department immediately. Upon arrival, patient was found to be in atrial fibrillation with a rapid ventricular response. Patient will be admitted to the hospital for full evaluation and management of this condition. Of note, with the exception of shortness of breath/dyspnea on exertion, the patient denies additional symptoms. She denies chest pains, nausea, vomiting, headaches, neurological abnormalities, GI abnormalities, and urinary abnormalities. PAST MEDICAL HISTORY: 1. Chronic myelogenous leukemia. 2. COPD requiring home oxygen. 3. Type 2 diabetes. 4. Hypertension. 5. Recent history of near syncopal episode secondary to iatrogenic bradycardia. CURRENT MEDICATIONS: 1. Metformin 1000 mg at bedtime. 2. Aspirin 81 mg daily. 3. Vitamin D2 2000 units daily. 4. Vitamin B complex daily. 5. Tasigna 2 capsules twice daily. 6. Lasix 40 mg on Mondays, Wednesdays, and Fridays. 7. Iron sulfate 325 mg daily. 8. Magnesium oxide 400 mg daily. ALLERGIES: Patient states she is allergic to sulfa, latex, and penicillin. FAMILY HISTORY: Patient's mother passed at age 77 secondary to colon cancer. Patient's father passed at age 67 secondary to stroke. SOCIAL HISTORY: Patient is and lives with her . 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 She denies alcohol or illicit drug use. She has approximately 15 pack year history of tobacco use stopping many years ago. REVIEW OF SYSTEMS: A 12-point review of systems was performed. Pertinent positives and negatives noted in history of present illness. PHYSICAL EXAMINATION: VITAL SIGNS: Temperature 97.8, heart rate 116, respirations 18, blood pressure is 110/63. GENERAL: Well nourished, well developed, in no acute distress. HEENT: Normocephalic, atraumatic. Pupils equal, round, reactive to light. Extraocular muscles intact. Sclerae anicteric. [place] conjunctivae. Oral and nasopharynx clear without exudate. NECK: Supple. No lymphadenopathy. No thyromegaly. No bruits auscultated. CARDIOVASCULAR: Irregularly irregular. Tachycardic. No significant murmurs, rubs or gallops. PULMONARY: Crackles at bilateral bases. Adequate air movement. ABDOMEN: Soft, nontender, nondistended. Positive bowel sounds. EXTREMITIES: Moves all extremities well. No significant clubbing, cyanosis, or edema. NEUROLOGIC: Cranial nerves 2 through 12 grossly intact. Motor and sensory grossly intact. PSYCHOLOGIC: Examination is appropriate. LABORATORY DATA: White blood cell count 7.37, hemoglobin 10.5, hematocrit 33.1, platelet count 212,000. PT 10.3, INR 0.9, APTT is 26.9. Sodium 138, potassium 4.1, chloride 101, bicarb 28, BUN 20, creatinine 1.0, glucose 128, calcium 9.5, magnesium 2.0, total bilirubin 1.07, total protein 8.1, albumin 3.7, alkaline phosphatase 71, AST 31, ALT 35, CK total 79. Troponin less than 0.010. Chest x-ray revealed mild interval improvement. Mild interval improvement in atelectasis versus infiltrate in the lower left lung. Small bilateral pleural effusions. ASSESSMENT AND PLAN: A 71-year-old white female with past medical history as noted presents for evaluation of palpitations/tachycardia. EKG confirms atrial fibrillation with rapid ventricular response. As noted above, patient recently was admitted secondary to symptomatic bradycardia in the setting of beta reji use. With discontinuing beta reji, she has developed atrial fibrillation. We will need to remain aware with treatment of her current condition. 1. Admit to CICU. 2. Atrial fibrillation with a rapid ventricular response-we will initiate diltiazem drip. We will start patient on Lovenox a mg per kg q.12 hours. We will consult Cardiology in the a.m. As above, we will avoid beta blockers for now as she has developed symptomatic bradycardia associated. We will follow her clinical course very closely. We will check a TSH, free T4, magnesium level, and cardiac enzymes in the a.m. 3. Hypertension-patient has longstanding disease. We will monitor patient's blood pressure closely with the initiation of a diltiazem drip. We will follow this. 4. Chronic hypoxia-I suspect pulmonary disease and increasing pulmonary pressures likely assisted in precipitating the cardiac electrical abnormalities. For now, we will continue oxygen per protocol. We will follow this. 5. Diabetes-we will continue patient on metformin therapy. We will cover patient with sliding scale insulin. 6. Chronic myelogenous leukemia-we will continue the signet Tasigna. We will remain aware. At this point, I am unaware of potential cardiac side effects with exception of prolonged QT. We will follow. 7. Fluid, electrolytes, nutrition. We will monitor electrolytes. Fluid to be given only with Cardizem drip. Cardiac prudent diet. 8. Prophylaxis. Patient will be placed on Lovenox a mg per kg q.12 hours. cc: MD Rich Graves MD
[2017-01-19 05:22] LABS: ALBUMIN 3.5 g/dL (3.5-5.0); CALCIUM 8.7 mg/dL (8.8-10.2); POTASSIUM 4.8 mmol/L (3.5-5.1); TOTAL BILIRUBIN 0.87 mg/dL (0.20-1.00); TOTAL PROTEIN 7.2 g/dL (6.3-8.3)
[2017-01-19 05:27] LABS: FREE T4 1.05 ng/dL (0.93-1.70)
[2017-01-19] MEDS: HUMALOG SUBQ SCH ×6 (06:47→22:50)
[2017-01-19] MEDS: PATIENT'S OWN MED PO SCH ×2 (08:47→22:15)
[2017-01-19] MEDS: LOVENOX SUBQ SCH (08:47)
--- NOTE | 2017-01-19 08:57 | EKG Report ---
Test Performed on : 01/19/2017 06:04:43 AM Test Reason : New onset atrial fibrillation Blood Pressure : / mmHG Vent. Rate : 052 BPM Atrial Rate : 052 BPM P-R Int : 114 ms QRS Dur : 066 ms QT Int : 502 ms P-R-T Axes : 041 028 024 degrees QTc Int : 466 ms Sinus bradycardia. Otherwise normal ECG When compared with ECG of 19-JAN-2017 00:09, (Unconfirmed) premature ventricular complexes. are no longer present Confirmed by Eugenia Tolbert MD ([id number]) on 01/20/2017 12:26:51 PM
[2017-01-19] MEDS ORDERED: FERROUS SULFATE PO SCH (09:00)
[2017-01-19] MEDS ORDERED: VITAMIN D PO SCH (09:00)
[2017-01-19] MEDS ORDERED: MAG-OX PO SCH (09:00)
[2017-01-19] MEDS ORDERED: VICON-C PO SCH (09:00)
--- NOTE | 2017-01-19 09:00 | EKG Report ---
Test Performed on : 01/19/2017 00:09:31 AM Test Reason : New onset atrial fibrillation Blood Pressure : / mmHG Vent. Rate : 066 BPM Atrial Rate : 066 BPM P-R Int : 148 ms QRS Dur : 066 ms QT Int : 450 ms P-R-T Axes : 062 017 015 degrees QTc Int : 471 ms Sinus rhythm. with occasional premature ventricular complexes. Possible Left atrial enlargement Borderline ECG When compared with ECG of 18-JAN-2017 16:38, (Unconfirmed) Sinus rhythm. has replaced Atrial fibrillation. QT has lengthened Confirmed by Tomasz HERZOG MRuiz Menjivar ([id number]) on 01/20/2017 12:26:29 PM
--- NOTE | 2017-01-19 09:53 | EKG Report ---
Test Performed on : 01/18/2017 2:46:04 PM Test Reason : canc in error Blood Pressure : / mmHG Vent. Rate : 139 BPM Atrial Rate : 133 BPM P-R Int : 000 ms QRS Dur : 066 ms QT Int : 334 ms P-R-T Axes : 000 012 -13 degrees QTc Int : 508 ms Undetermined rhythm Nonspecific ST and T wave abnormality Abnormal ECG When compared with ECG of 15-JAN-2017 06:03, Current undetermined rhythm precludes rhythm comparison, needs review Unconfirmed Result
--- NOTE | 2017-01-19 09:53 | EKG Report ---
Test Performed on : 01/18/2017 4:38:02 PM Test Reason : ed. canc in error Blood Pressure : / mmHG Vent. Rate : 097 BPM Atrial Rate : 227 BPM P-R Int : 000 ms QRS Dur : 070 ms QT Int : 308 ms P-R-T Axes : 000 021 023 degrees QTc Int : 391 ms Atrial fibrillation. Abnormal ECG When compared with ECG of 18-JAN-2017 14:46, (Unconfirmed) Previous ECG has undetermined rhythm, needs review Unconfirmed Result
--- NOTE | 2017-01-19 11:07 | CONSULTATION ---
DATE OF CONSULTATION: 01/19/2017 INDICATION: Atrial fibrillation, tachy-joel syndrome. HISTORY OF PRESENT ILLNESS: Ms. Estrella is a 71-year-old white female with a history of chronic myelogenous leukemia, COPD, type 2 diabetes, and hypertension. Yesterday she presented for evaluation of heart racing and shortness of breath. This occurred during the course of the day shortly after she came in from going out to a local fast food restaurant. She was walking around the kitchen arranging of food when she felt somewhat short of breath. She has a pulse oximeter at home and place this on her finger and was noted to have a pulse ox of 93% on her normal 2 L with a heart rate in the 140s. She subsequently presented to the ER was found to be in atrial fibrillation with rapid ventricular response. She apparently converted spontaneously over the course of the evening on a diltiazem infusion. Notably, during that time period at around 8:20 p.m. she was still awake and had a 3.7 second pause and had some episodes of lightheadedness. Notably, she very recently had a hospitalization in which she had an episode of near-syncope that occurred after standing up and walking to the [facility]. There was a possibility of orthostatic hypotension and she had some medication including Ziac discontinued. She reported a heart rate in the 30s and 40s at that time at home but this was via pulse oximetry. She had no previous history of atrial fibrillation that she aware of. PAST MEDICAL HISTORY: 1. Significant for chronic myelogenous leukemia. She is currently maintained on nilotinib. 2. COPD, requiring home oxygen therapy. 3. Type 2 diabetes. 4. Hypertension. 5. Recent history of near syncope, thought possibly to be due to relative bradycardia, possibly caused by Ziac. FAMILY HISTORY: Significant for mother passing away at 77 due to colon cancer. Father at 67 secondary to a stroke. SOCIAL HISTORY: Patient is . Her is present at bedside. She has retired from working for the [employer]. No alcohol or illicit drugs. She has a 15 pack-year history of tobacco use, quitting many years ago. REVIEW OF SYSTEMS: A 10 system review of systems is negative except for those things mentioned in the HPI. PHYSICAL EXAMINATION: Vital signs: She is afebrile. Her heart rates during this hospitalization have been initially in the 150s and subsequently since 3:50 this morning they have been in the 50s. Her blood pressure is 103/42. Her O2 saturation is in the high 90s on 2 L. Generally: No acute distress. HEENT: Oropharynx is moist. Normal dentition. Eye examination shows pink conjunctivae, white sclerae. Neck: Examination shows no obvious thyromegaly or thyroid tenderness. Cardiovascular: She is in a regular rate and rhythm. She has no obvious murmurs. No S3. She has no lower extremity edema. Chest: Exam sounds relatively clear. No increased work of breathing. Abdomen: Soft, nontender, nondistended. She has no obvious organomegaly. Skin Exam: Warm and dry throughout without any rashes. Neurological: Moving all extremities well. Cranial nerves 2 through are intact. No obvious sensation deficits. Psychiatric: Alert, oriented. Pleasant normal mood and affect. PERTINENT DATA: She had an echocardiogram performed on the demonstrating mild MR, mild TR, EF of at least 60%, grade 1 LV dysfunction, moderate left atrial enlargement, RV systolic pressure was measured somewhere between 50 and 55 mmHg. She had an EKG performed on the at 6:04 showing sinus bradycardia at 52 beats per minute. EKG on the at 9:31, sinus rhythm rate of 66, occasional PVCs. She had a roughly 4 second pause occurring at 3:50 this morning. She had a 3.7 second pause occurring at 8:20 on the that was associated with symptoms of lightheadedness and another 3.5 second pause at 10:20 last night which was not associated with symptoms as she was asleep. She did present in atrial fibrillation at 1446 yesterday with a rate of 139 and she had a subsequent EKG at 4:38 p.m. with a rate of 97 beats per minute, in atrial fibrillation. Her laboratory data shows a white count of 7.3, hematocrit 33, platelet count 212,000. Her INR is 0.98. Her sodium is 144, potassium 4.8, BUN 21, creatinine is 1.1. Her proBNP was 853 yesterday. Her thyroid tests were normal. She had a chest x-ray performed yesterday demonstrating mild interval improvement with small bilateral pleural effusions noted. ASSESSMENT: 1. New onset atrial fibrillation with what appears to be tachy-joel syndrome present, as well as symptoms corresponding to pauses. 2. Chronic myelogenous leukemia. Currently on to [facility]. PLAN: I will discuss the case with the electrophysiology service at [facility] today. 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 Presently, she is in sinus rhythm. I would not initiate long-term oral anticoagulation presently considering the possible need for a surgical implantation of a pacemaker. I would agree with continuation of the enoxaparin at current doses. cc: MD Rich Raya MD
[2017-01-19] MEDS: GLUCOPHAGE PO SCH (20:33)
[2017-01-20 03:43] VITALS: BP 110/45
[2017-01-20 05:04] LABS: MANUAL DIFF NEEDED? NO
[2017-01-20 05:08] LABS: BASO% 0.2 % (0.0-0.8); EOS% 1.7 % (0.0-10.0); HEMATOCRIT 31.7 % (37.0-47.0); HEMOGLOBIN 9.9 g/dL (12.0-16.0); IMM GRAN# 0.03 X1000 (0.0-0.04); IMM GRAN% 0.5 % (0.0-0.5); LYMPH# 1.57 X1000 (1.2-3.4); MCH 30.7 PG (27-31); MCHC 31.2 g/dL (33-37); MCV 98.4 FL (81-99); MONO# 0.75 X1000 (0.11-0.59); MONO% 12.9 % (1.7-9.3); NEUT% 57.7 % (42.2-75.2); PLT 208 X1000 (130-400); RBC 3.22 XMIL (4.2-5.4)
[2017-01-20 05:20] LABS: PROTIME 10.5 Seconds (9.2-11.7)
[2017-01-20 05:27] LABS: CALCIUM 8.6 mg/dL (8.8-10.2); POTASSIUM 4.6 mmol/L (3.5-5.1)
== END 2017-01-20 05:55 | disposition short-term general hospital (02) ==
LOC: ED 14:34 → 3S 18:23
PROVIDERS: ADMIT Internal Medicine; ATTEND Internal Medicine

== ENCOUNTER 2017-01-31 00:31 | Inpatient (IN) ==
[2017-01-31] MEDS ORDERED: ASPIRIN PO STA (00:55)
[2017-01-31] MEDS ORDERED: CARDIZEM IV ONE ×2 (01:05→02:20)
[2017-01-31 01:54] LABS: MANUAL DIFF NEEDED? NO
[2017-01-31 01:58] LABS: BASO% 1.7 % (0.0-0.8); EOS# 0.16 X1000 (0.0-0.7); EOS% 1.7 % (0.0-10.0); HEMATOCRIT 30.1 % (37.0-47.0); HEMOGLOBIN 9.7 g/dL (12.0-16.0); IMM GRAN# 0.04 X1000 (0.0-0.04); IMM GRAN% 0.4 % (0.0-0.5); LYMPH# 1.63 X1000 (1.2-3.4); LYMPH% 17.1 % (20.5-51.1); MCH 31.4 PG (27-31); MCHC 32.2 g/dL (33-37); MCV 97.4 FL (81-99); MONO# 1.21 X1000 (0.11-0.59); MONO% 12.7 % (1.7-9.3); MPV 8.3 FL (7.4-10.4); NEUT% 66.4 % (42.2-75.2); PLT 267 X1000 (130-400); RBC 3.09 XMIL (4.2-5.4)
[2017-01-31 02:08] LABS: INR 0.98; PROTIME 10.3 Seconds (9.2-11.7); PTT 27.4 Seconds (22.0-36.0)
[2017-01-31 02:49] LABS: AGAP 11; ALBUMIN 3.7 g/dL (3.5-5.0); ALKALINE PHOSPHATASE 68 U/L (32-104); BUN 20 mg/dL (8-22); CALCIUM 9.7 mg/dL (8.8-10.2); CHLORIDE 104 mmol/L (98-107); CK PROFILE 59 U/L (24-173); COSMO 289; GOT 27 U/L (10-30); GPT 34 U/L (10-36); MAGNESIUM 2.2 mg/dL (1.5-2.7); POTASSIUM 4.9 mmol/L (3.5-5.1); SODIUM 143 mmol/L (136-145); TCO2 28 mmol/L (25-35); TOTAL BILIRUBIN 0.68 mg/dL (0.20-1.00); TOTAL PROTEIN 7.9 g/dL (6.3-8.3)
[2017-01-31] MEDS: CARDIZEM 100 MG/NS 100 MG/100 ML IVPB IV SCH ×4 (03:13→10:10)
--- NOTE | 2017-01-31 03:33 | PROVIDER DOCUMENTATION ---
This chart was entered by Simon Bermudez Scribe, acting as scribe for Khang Mistry MD. HPI-Cardiac General - General Chief Complaint: Shortness of Breath Stated Complaint: IRREGULAR HEARBEAT, "HEART RACING" Time Seen by Provider: 01/31/17 00:54 Source: patient Allergies/Adverse Reactions: Patient Allergies Allergy/AdvReac Type Severity Reaction Status Date / Time Sulfa (Sulfonamide Allergy Severe RASH Verified 01/31/17 03:30 Antibiotics) latex Allergy Intermediate HIVES Verified 01/31/17 03:30 sulfamethoxazole Allergy Intermediate RASH Verified 01/31/17 03:30 [From Bactrim] trimethoprim [From Bactrim] Allergy Intermediate RASH Verified 01/31/17 03:30 Penicillins AdvReac Severe RASH Verified 01/31/17 03:30 Home Medications: Home Medication List Medication Instructions Recorded Confirmed Last Taken Type Aspirin EC 81 mg PO DAILY 01/18/17 01/18/17 01/18/17 08:00 History 81 MG Ergocalciferol (Vitamin D2) 2,000 unit PO DAILY 01/18/17 01/18/17 01/18/17 08: 00 History [Vitamin D2] 2000 UNIT Ferrous Sulfate 325 mg PO DAILY 01/18/17 01/18/17 01/18/17 08:00 History 325 MG Furosemide 40 mg PO DIRECTED 01/18/17 01/18/17 01/16/17 07:00 History 40 MG Magnesium Oxide [Magnesium] 400 mg PO DAILY 01/18/17 01/18/17 01/18/17 08:00 History 400 MG Metformin HCl [Glucophage] 1,000 mg PO HS 01/18/17 01/18/17 01/17/17 21:00 History 1000 MG Nilotinib HCl [Tasigna] 300 mg PO BID 01/18/17 01/18/17 01/18/17 08:00 History 300 MG Vitamin B Complex 1 each PO DAILY 01/18/17 01/18/17 01/18/17 08:00 History 1 EACH - History of Present Illness-Cardiac Nature of Presenting Problem: Pt is a 71 yowf who presents to ER with CC of palpitations. Pt reports that she recently had a pacemaker installed and was told to come to ER if her heart rate goes over 100. Pt states that she felt herself become mildly short of breath earlier, so she checked her heart rate and noticed it was in the 110s. Pt states taht she was unable to relieve her HR, so came to ER. Pt denies any CP or lightheadedness. Quality of Pain: reports: none Severity in ED: mild, moderate Onset/Duration: unsure, just prior to arrival Timing: still present Palpitation Quality: fast/pounding heart beat History of arrythmia: reports: A-Fib, other (recent pacemaker placed) Associated Symptoms: reports: shortness of breath (very mild). denies: abdominal pain, back pain, diaphoresis, dizziness, edema, nausea, swelling/lump in chest, syncope, vomiting, weakness Similar Symptoms Previously?: Yes Recently Seen Here or By Another Healthcare Provider: Yes Review of Systems - Adult - REVIEW OF SYSTEMS - ADULT Constitutional: denies: chills, fever, fatique, night sweats, weight gain, weight loss Eyes: reports: no symptoms reported Ears, Nose, Mouth & Throat: reports: no symptoms reported Cardiovascular: reports: irregular heart rate, palpitations. denies: chest pain , edema, heart murmur, orthopnea, poor circulation, PND, syncope Respiratory: reports: shortness of breath. denies: chronic cough, cough, dyspnea on exertion, excessive sputum production, hemoptysis, pleurisy, wheezing Gastrointestinal: reports: no symptoms reported Genitourinary: reports: no symptoms reported Musculoskeletal: reports: no symptoms reported Integumentary: reports: no symptoms reported Neurological: reports: no symptoms reported Psychiatric: reports: no symptoms reported Endocrine: reports: no symptoms reported Hematologic/Lymphatic: reports: no symptoms reported Allergic/Immunologic: reports: no symptoms reported All Other Systems: Reviewed and Negative Past History - Adult - PAST MEDICAL HISTORY-ADULT Review of Records: reports: Nursing Assessment Review, Medications Reviewed Cardiovascular: reports: HTN, pacemaker Respiratory: reports: COPD Endocrine/Immune: reports: Diabetes, Leukemia (CML) - PRIOR SURGERIES/PROCEDURES Surgical/Procedure History: reports: other (ut) - IMMUNIZATION STATUS Childhood Immunizations: See Nurse Assessment Flu Vaccine: See Nurse Assessment - FAMILY HISTORY Family History: reviewed, not pertinent Physical Exam-General - PHYSICAL EXAM-ADULT Initial Vital Signs Reviewed: Yes - CONSTITUTIONAL General Appearance: appears well, alert, mild distress - NECK Neck: non-tender, full range of motion, supple - RESPIRATORY Respiratory: chest non-tender, lungs clear, no pleuratic chest pain, no respiratory distress, no accessory muscle use, crackles (fine crackles in lower lobes). negative: normal breath sounds, respiratory distress - CARDIOVASCULAR Cardiovascular: normal peripheral pulses, tachycardia, irregularly irregular (a- fib). negative: regular rate, rhythm, bradycardia - GASTROINTESTINAL (ABDOMEN) Abdominal Exam: normal bowel sounds, non tender, soft, no organomegaly, no pulsatile mass. negative: guarding, rebound, tenderness - MUSCULOSKELETAL Back Exam: no CVA tenderness, no vertebral tenderness. negative: CVA tenderness , vertebral tenderness - SKIN Integumentary: laceration(s) (healing laceration in left upper chest where pacemaker was placed; no signs of infection). negative: ecchymosis, erythema, swelling, tenderness, warm - PSYCHIATRIC Psych/Mental Status: normal mood/affect, normal thought content, normal thought process, oriented x 3 Progress - PLAN OF CARE/RESULTS Progress/Plan/Lab Results: Vital Signs - 8 hr 01/31/17 00:35 01/31/17 01:52 01/31/17 02:20 Temperature 98.8 F Pulse Rate 117 H 106 H 108 H Respiratory Rate 24 16 22 Blood Pressure 135/68 138/79 134/85 O2 Sat by Pulse Oximetry 96 95 97 01/31/17 03:23 Temperature Pulse Rate 100 H Respiratory Rate 19 Blood Pressure 130/73 O2 Sat by Pulse Oximetry 96 Laboratory Results - last 24 hr 01/31/17 01/31/17 01/31/17 01:35 01:35 01:35 WBC 9.56 RBC 3.09 L Hgb 9.7 L Hct 30.1 L MCV 97.4 MCH 31.4 H MCHC 32.2 L RDW Std Deviation 13.9 Plt Count 267 MPV 8.3 Immature Gran % (Auto) 0.4 Neut % (Auto) 66.4 Lymph % (Auto) 17.1 L [place] % (Auto) 12.7 H Eos % (Auto) 1.7 Baso % (Auto) 1.7 H Immature Gran # (Auto) 0.04 Neut # (Auto) 6.36 Lymph # (Auto) 1.63 [place] # (Auto) 1.21 H Eos # (Auto) 0.16 Baso # (Auto) 0.16 PT 10.3 INR 0.98 PTT (Actin FS) 27.4 D-Dimer 3.14 H Sodium Potassium Chloride Carbon Dioxide Anion Gap BUN Creatinine Estimated GFR/1.73 m2 BUN/Creatinine Ratio Glucose Calculated Osmolality Calcium Magnesium Total Bilirubin AST ALT Alkaline Phosphatase Creatine Kinase Troponin T Kgb-B-Gqdfvbisfsd Pept Total Protein Albumin Globulin Albumin/Globulin Ratio 01/31/17 01/31/17 01/31/17 02:20 02:20 02:20 WBC RBC Hgb Hct MCV MCH MCHC RDW Std Deviation Plt Count MPV Immature Gran % (Auto) Neut % (Auto) Lymph % (Auto) [place] % (Auto) Eos % (Auto) Baso % (Auto) Immature Gran # (Auto) Neut # (Auto) Lymph # (Auto) [place] # (Auto) Eos # (Auto) Baso # (Auto) PT INR PTT (Actin FS) D-Dimer Sodium 143 Potassium 4.9 Chloride 104 Carbon Dioxide 28 Anion Gap 11 BUN 20 Creatinine 0.9 Estimated GFR/1.73 m2 > 60 BUN/Creatinine Ratio 22 Glucose 121 H Calculated Osmolality 289 Calcium 9.7 Magnesium 2.2 Total Bilirubin 0.68 AST 27 ALT 34 Alkaline Phosphatase 68 Creatine Kinase 59 Troponin T < 0.010 Bpa-R-Mnovudhldcs Pept 1454 H Total Protein 7.9 Albumin 3.7 Globulin 4.2 Albumin/Globulin Ratio 0.9 Orders Category Date Time Status Cardiac Monitoring DIRECTED Care 01/31/17 00:55 Active Oxygen Therapy- ED Nursing DIRECTED Care 01/31/17 00:55 Active Saline Loc NOW Care 01/31/17 00:55 Active CHEST-2 VIEWS [RAD] Stat Exams 01/31/17 00:55 Taken CBC WITH ELECTRONIC DIFF [HEME] Stat Lab 01/31/17 01:35 Completed CK PROFILE [SP CHEM] Stat Lab 01/31/17 02:20 Completed COMPREHENSIVE METABOLIC PANEL [CHEM] Stat Lab 01/31/17 02:20 Completed D-DIMER [CHEM] Stat Lab 01/31/17 01:35 Completed MAGNESIUM [CHEM] Stat Lab 01/31/17 02:20 Completed PRO B-NATRIURETIC PEPTIDE Stat Lab 01/31/17 02:20 Completed PROTIME WITH INR [COAG] Stat Lab 01/31/17 01:35 Completed PTT [COAG] Stat Lab 01/31/17 01:35 Completed TROPONIN T Stat Lab 01/31/17 02:20 Completed Aspirin Med 01/31/17 00:55 Discontinued 325 mg PO STAT STA Diltiazem 100 mg/Ns [Cardizem 100 mg/Ns] Med 01/31/17 02:45 Active 100 mg in 100 ml IV As Directed Diltiazem [Cardizem] Med 01/31/17 01:05 Discontinued 10 mg IV NOW ONE Diltiazem [Cardizem] Med 01/31/17 02:20 Discontinued 10 mg IV NOW ONE EKG [EKG] Stat Ther 01/31/17 00:39 Ordered Result Diagrams: 01/31/17 01:35 01/31/17 02:20 - REASSESSMENT Reassessment #1 Time Reassessed: 02:45 Status: other (Pt's heart rate still in the 110's. Original plan to increase deltiazem dose, but pt was weary. Offered to put pt on deltiazem drip and admit for obs and pt agreed.) - EKG 1 Time of EKG reading by physician:: 00:37 EKG Read and Signed by:: Khang Mistry EKG Interpretation (*Must complete 3 of following elements*): Abnormal Rate: 109 Rhythm: Atrial fibrillation with RVR - XRAY 1 XRAY: Bilateral XRAY Study: Chest Impression: See EMR Report (Chronic right sided pleural effusion, unchanged from 01/15/2017; Left sided pleural effusion that has improved - Dr. Mistry) Departure - Departure Date of Disposition Decision: 01/31/17 Time of Disposition Decision: 03:32 DIAGNOSIS: Atrial fibrillation with RVR Disposition: HOME 01 Certified Medical Emergency: Emergent Condition: Good Referrals and Follow-Ups: Rich Hernandez MD [Primary Care Provider] - - Critical Care Note This patient required my direct & personal management of CC.: No This chart was documented by the indicated scribe, (Simon Bermudez Scribe) and accurately reflects the services I performed and decisions made by me, Khang Chou MD, as attested by the provider's signature.
[2017-01-31] MEDS ORDERED: TYLENOL PO PRN (04:28)
[2017-01-31] MEDS ORDERED: LOVENOX SUBQ SCH (04:28)
[2017-01-31] MEDS: NS 1,000 ML IV SCH ×2 (04:46→19:06)
[2017-01-31] MEDS: PRILOSEC PO SCH (07:03)
--- NOTE | 2017-01-31 07:46 | Diag Imaging Result Doc PS360 ---
EXAM: CHEST-2 VIEWS INDICATION: CP TECHNIQUE: 2 views COMPARISON: 01/18/2017 FINDINGS: There is a thick-walled cavitary lesion at the left lung base with an air-fluid level. It is similar to the previous study. There is a small pleural effusion on the right similar to the previous study. No new consolidations are appreciated. Cardiac silhouette is stable. IMPRESSION: Essentially stable chest. Electronically signed by Alfie Parrish 01/31/2017 7:43 AM
[2017-01-31] MEDS ORDERED: ZOFRAN IV PRN (07:53)
[2017-01-31] MEDS: VITAMIN D PO SCH (08:00)
[2017-01-31] MEDS: MAG-OX PO SCH (08:00)
[2017-01-31] MEDS: FOLTX PO SCH (08:00)
[2017-01-31] MEDS: FERROUS SULFATE PO SCH (08:00)
--- NOTE | 2017-01-31 08:07 | Diag Imaging Result Doc PS360 ---
EXAM: ANGIOGRAM/PULMONARY ARTERIES INDICATION: PE TECHNIQUE: In addition to standard CTA thin section images, 3-D MIP reformations were obtained. COMPARISON: 10/03/2016 FINDINGS: There is no evidence of pulmonary embolism. There is trace patchy atherosclerotic calcification of the aortic arch. There is no evidence of aortic dissection or aneurysm. There is cardiomegaly. There is no evidence of significant mediastinal or hilar lymphadenopathy. There is marked stable elevation of the left hemidiaphragm. The cavitary lesion mentioned on an earlier chest radiograph actually appears to represent the markedly elevated fundus of the stomach rather than a parenchymal lung lesion. The large pleural effusions seen on the previous study have decreased significantly. There is only trace pleural fluid on the left and a small effusion on the right. There is bibasilar atelectasis that is mild the previous study. There is a 1.4 cm focal groundglass opacity in the left upper lobe on image 56 of series 5 that was not on the previous study suggesting focal pneumonitis. There is vague mosaic attenuation seen throughout both lungs suggesting mild air trapping or mild edema. IMPRESSION: 1.No evidence of pulmonary embolism. 2.Significant improvement of bilateral pleural effusions and bibasilar atelectasis since the previous study. 3.Focal groundglass opacity in the left upper lobe suggesting focal pneumonitis. 4.Mild diffuse air trapping versus mild edema. 5.Stable cardiomegaly. Electronically signed by Alfie Parrish 01/31/2017 8:05 AM
[2017-01-31] MEDS ORDERED: ASPIRIN EC PO SCH (09:00)
[2017-01-31] MEDS ORDERED: FLECAINIDE ACETATE PO SCH (09:00)
--- NOTE | 2017-01-31 09:04 | HISTORY AND PHYSICAL ---
PRIMARY CARE PROVIDER: Dr. Rich Hernandez. TIME SEEN: 0600 hours. CHIEF COMPLAINT: Shortness of breath and palpitations. HISTORY OF PRESENT ILLNESS: Ms. Estrella is a 71-year-old, female with a past medical history of chronic myelogenous leukemia, COPD, diabetes mellitus type 2, hypertension, and a recent pacemaker placement for joel-tachy syndrome and joel arrhythmias. The patient did have a pacemaker placed at [facility] on 01/20/2017. At [facility] she was being cared for by Dr. Salguero, the sod cutter. Initially it was thought that the patient's bradycardia might have been previously related to medication of Ziac. After discontinuation of this medicine, she still had issues with arrhythmias and ultimately had her pacemaker placed. She states that she was discharged on the same day her pacemaker was placed on 01/20/2017. Since being home, she has denied any complications, although last night at approximately 10 to 10:30 p.m. she stated that she got to where she became short of breath. She stated that she has a home pulse oximeter and checked her heart rate with it, and it was in the 130s. She did count her pulse by palpation, her radial pulse, which her heart rate was 124. The patient stated that she did monitor this for quite some time, although her heart rate did remain elevated and ultimately did decide to come into the ER for further evaluation because she was still experiencing some shortness of breath. During this time she denied any dizziness, lightheadedness or chest pain. She also denies any headache, cough, abdominal pain, nausea, vomiting or diarrhea. She denies any dysuria or urinary frequency. She denies any fever, body aches or chills. She also denies any hematochezia or melena, although does state she does have dark stools, but this is secondary to her ferrous sulfate that she takes. She states "my stool is not tarry, black in appearance ". She reports some intermittent swelling of her right lower extremity, although denied any pain. Upon evaluation in the ER, the patient had initial vital signs of temperature 98.8 degrees, heart rate 117, respirations 24, blood pressure is 135/68. She was 96% nasal cannula 2 L. EKG performed on arrival to the ER did show atrial fibrillation with RVR at a rate of 109. She was given a total of 20 mg of Cardizem IV push given in 2 separate doses in the ER, although ultimately did have to be placed on a Cardizem drip. At this time, her heart rate has improved. She is now maintaining a heart rate in the 80s to 90s, although still is in atrial fibrillation. The patient's D-dimer was also elevated. She denies any previous history of DVT or pulmonary embolism. Her cardiac enzymes were negative. At this time, we will admit the patient for further treatment, evaluation of her atrial fibrillation and dyspnea. REVIEW OF SYSTEMS: A 12 point review of systems was conducted with the patient. All were negative, except for pertinent positives mentioned in the HPI. PAST MEDICAL HISTORY: 1. Chronic myelogenous leukemia. 2. COPD requiring home oxygen nasal cannula at 2 L. 3. Diabetes mellitus type 2. 4. Hypertension. 5. Iron-deficiency anemia. 6. Recent pacemaker placement secondary to joel tachy syndrome, as well as joel arrhythmias. This was performed at [facility] on 01/20/2017. Dr. Salguero was her sod cutter at [facility], although she was discharged to follow up with Dr. Allen, but has not seen him as of yet. PAST SURGICAL HISTORY: 1. Appendectomy. 2. Uterine polyp removal. 3. Bilateral cataract surgery. 4. Thoracentesis. 5. Recent pacemaker placement to left chest. SOCIAL HISTORY: Patient is and lives with her . 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 She was a previous smoker. She smoked approximately half a pack per day for 10 years, although has quit smoking many years ago. She denies any alcohol or illicit drug use. FAMILY HISTORY: Positive for her mother having history of colon cancer and passing away at the age of 77. Her father had a history of stroke and at age 67. ALLERGIES: She reports allergies to sulfa, latex, and penicillin. HOME MEDICATIONS: 1. Aspirin 81 mg p.o. daily. 2. Diltiazem 24 hour controlled dose 120 mg p.o. daily. 3. Vitamin D 2 2000 units p.o. daily. 4. Ferrous sulfate 325 mg p.o. daily. 5. Flecainide acetate 50 mg one tablet twice daily. 6. Magnesium 400 mg p.o. daily. 7. Metformin 1000 mg p.o. at bedtime. 8. Tasigna 300 mg p.o. b.i.d. 9. Vitamin B complex one capsule daily. DIAGNOSTIC DATA/LABORATORY RESULTS: White blood cell count 9.56, hemoglobin 9.7 , hematocrit 30.1, platelet count is 267. PT 10.3, INR 0.98, PTT is 27.4, D-dimer is 3.14. Sodium 143, potassium 4.9, chloride 104, bicarbonate 28, BUN 20, creatinine 0.9. Glucose 121, calcium 9.7, magnesium 2.2. Liver function tests are within normal limits. CK 59, troponin less than 0.01. ProBNP 1454. TSH is 2.54. EKG showed atrial fibrillation with RVR at a rate of 109 with a QTc of 465. Chest x-ray shows chronic right-sided pleural effusion. This appears to be unchanged from previous x-ray on 01/15/2017. There is also noted a left-sided pleural effusion that appears to have improved as well, although we are awaiting official radiology over read. PHYSICAL EXAMINATION: VITAL SIGNS: Temperature 97.8 degrees, heart rate 65, respirations 18, blood pressure 120/75, oxygen saturation is 99% nasal cannula at 2 L. GENERAL: Ms. Estrella is a very pleasant, 71-year-old female, who is resting comfortably in the inpatient bed. She was in no acute distress. She was awake, alert and able to answer all questions appropriately. HEENT: Head is atraumatic, normocephalic. Pupils are equal, round, reactive to light, were 3 mm bilaterally and brisk. Sub conjunctivae were pink. Oral mucosa was moist. Oropharynx was clear. The patient did report some itching noted to her left ear. Upon examination, the patient's tympanic membrane was pearly rueda. She did have a positive light reflex. The ear canal did not appear to have any irritation noted. There was a small amount of cerumen noted. On the patient's external ear, she did have a small area of irritation possibly from scratching this area. NECK: Supple. Trachea midline. No carotid bruits noted upon auscultation bilaterally. CARDIOVASCULAR: Patient has normal S1, S2. No obvious murmurs, gallops, rubs appreciated with a heart rate that is in the 80s which is irregular. PULMONARY: Patient has symmetrical chest expansion bilaterally. Lung sounds are clear to auscultation in bilateral full segura. ABDOMEN: Soft, nontender, nondistended. Bowel sounds were present in all 4 quadrants, were normoactive. EXTREMITIES: No cyanosis, clubbing, or edema noted at this time. Pulse, motor and sensory intact in all extremities. Pedal pulses are 3+ bilaterally. Patient has a negative Homans sign noted to bilateral lower extremities. INTEGUMENTARY: The patient's skin is pink, warm, dry, and intact. Her surgical wound on her left chest form her recent pacemaker placement appears to be healing well, no signs of infection noted. No other lesions, sores, or wounds noted. NEUROLOGICAL: Patient is alert and oriented x4. Cranial nerves 2-12 are grossly intact. ASSESSMENT AND PLAN: 1. Atrial fibrillation with rapid ventricular response. At this time the patient is currently still on a Cardizem drip. She does have a controlled rate in the 80s to 90s at this time. She is not experiencing any chest pain. We will continue the Cardizem drip, as well as continue her flecainide. We have placed a consultation with Dr. Velásquez, and will await his evaluation and further recommendations. Also we have placed an order for echocardiogram and will await those results as well. Continue to follow. 2. Dyspnea. At this time. This has resolved since the patient's heart rate has improved. We will continue to monitor this closely. She is on telemetry and is on continuous nasal cannula at 2 L. 3. Hypertension. We will continue the patient's home medications and continue to follow. 4. Diabetes mellitus type 2. At this time, we will hold her metformin and place her on lispro sliding scale per low-dose protocol and continue to follow. 5. Chronic obstructive pulmonary disease requiring continuous oxygen therapy with nasal cannula at 2 L. This appears to be stable at this time. We will continue her oxygen therapy and continue to follow. 6. Chronic myelogenous leukemia. We will continue the patient's Tasigna. 7. History of iron-deficiency anemia. This appears to be stable at this time. We will continue the patient's ferrous sulfate. 8. Elevated D-dimer. The patient's D-dimer was 3.14. She does have reports of dyspnea, although this has improved at this time. She also reported some intermittent recent swelling to her right lower extremity, although has denied any pain. For a further evaluation of this, we have placed an order for CT angiogram pulmonary arteries, as well as venous ultrasound of bilateral lower extremities. We will await those results and continue to follow. 9. The patient will be placed on CIC with telemetry. She will have vital signs every 4 hours. Will do strict intake and output. She will be on her diabetic diet. We will continue with the series of cardiac enzymes. We will repeat complete blood count and basic metabolic panel in the morning. 10. Deep vein thrombosis prophylaxis will be provided with Lovenox 40 mg subcutaneously every 24 hours. Further orders and recommendations pending hospital course, diagnostic studies and physician evaluation. Dictated by GREGG Yang for Brani Titus MD cc: MD Rich Rich MD MTDD
[2017-01-31] MEDS: ZEBETA PO SCH (10:10)
[2017-01-31] MEDS: TAMBOCOR PO SCH ×2 (10:11→21:01)
[2017-01-31] MEDS: PATIENT'S OWN MED PO SCH ×2 (10:12→21:49)
[2017-01-31] MEDS ORDERED: HUMALOG SUBQ SCH (11:00)
[2017-01-31] MEDS: LASIX PO SCH (12:06)
[2017-01-31] MEDS: CARDIZEM CD PO SCH (12:06)
--- NOTE | 2017-01-31 12:38 | CONSULTATION ---
DATE OF CONSULTATION: 01/31/2017 REASON FOR CONSULTATION: Cardiology was consulted for atrial fibrillation, rapid ventricular rate. HISTORY OF PRESENT ILLNESS: Ms. Estrella is a 71-year-old lady with history of CML, chronic obstructive pulmonary disease, diabetes, hypertension, who was here and had atrial fibrillation, had joel-tachy syndrome. Was transferred to [facility] on 01/20/2017. The patient had patient had a permanent pacemaker implanted. She had been at home. She noted elevated heart rate and some shortness of breath. Heart rate up to 130s and she came to the emergency room, was admitted. She was in atrial fibrillation. She was started on a Cardizem drip. She had an elevated D-dimer. Pulmonary arteriogram was done which revealed no pulmonary embolism, bilateral pleural effusions, and basilar atelectasis. Mild edema was suggested. Echocardiogram recently done revealed ejection fraction of 60%. Since admission to the hospital she feels better. REVIEW OF SYSTEMS: A 14-point review of system was done.Cardiovascular System: She denies chest pain suggestive of angina. There is no orthopnea or paroxysmal nocturnal dyspnea. Gastrointestinal System: She takes iron tablets, so there is no recent history of any GI bleeding. There is nausea or vomiting. Genitourinary System: There is no dysuria or hematuria. Respiratory system: As above. In addition, there is no history of fevers or chills. Endocrine System: Stable. PAST MEDICAL HISTORY: 1. CML. 2. Chronic obstructive pulmonary disease. 3. Recent permanent pacemaker implantation for tachybrady syndrome. 4. Atrial fibrillation. 5. Hypertension. 6. Iron deficiency anemia. 7. Appendectomy. 8. Bilateral cataract surgery. 9. Thoracentesis in the past. HOME MEDICATIONS: 1. Cardizem 120. 2. Flecainide 50 b.i.d. 3. Metformin 1000. 4. Tasigna 300 mg p.o. b.i.d. 5. Aspirin. PHYSICAL EXAMINATION: Vital Signs: Blood pressure was 120/75. Cardiovascular System: Normal jugular venous pressure. First and second heart sounds were heard. There was no S3 gallop. Respiratory System: Fine inspiratory scattered crepitations. Abdomen: Soft, nontender. There was no guarding or rigidity. Bowel sounds were heard. Central nervous system: Alert. Was moving all 4 extremities. Extremities: Examination of extremities revealed mild pitting pedal edema. ASSESSMENT AND PLAN: Ms. Marcelle Estrella is a 71-year-old lady with history of chronic myeloid leukemia, chronic obstructive pulmonary disease, diabetes, joel-tachy syndrome, hypertension, preserved left ventricular systolic function. Had a recent permanent pacemaker implantation at [facility] 01/20/2017. Is admitted with increasing heart rate and shortness of breath. Chest x-ray suggestive of heart failure. 1. She has diastolic heart failure. Given this, we will start her on Lasix 40 mg daily. 2. Atrial fibrillation. She will increase the Cardizem to 180 mg a day. She was on Ziac in the past, which has been restarted to control her heart rate. She is also on flecainide, which has been started by electrophysiology in [place]. We will continue these 2 medications. Next for stroke prophylaxis, I had a detailed discussion with patient and family. I will start her on Eliquis 5 mg p.o. twice daily. Discontinued the aspirin and Lovenox. 3. She has chronic myeloid leukemia. Continue with her current medications. 4. Diabetes. She is on metformin. I have not made any changes to her medications. Thank you for the consult. We will follow hospital course. cc: MD Rich Leon MD
[2017-01-31] MEDS: ELIQUIS PO SCH (21:02)
[2017-02-01 05:44] LABS: MANUAL DIFF NEEDED? NO
[2017-02-01 06:00] LABS: BASO% 0.2 % (0.0-0.8); EOS# 0.16 X1000 (0.0-0.7); EOS% 1.9 % (0.0-10.0); HEMATOCRIT 29.1 % (37.0-47.0); HEMOGLOBIN 9.3 g/dL (12.0-16.0); IMM GRAN# 0.02 X1000 (0.0-0.04); IMM GRAN% 0.2 % (0.0-0.5); LYMPH% 19.5 % (20.5-51.1); MCH 31.2 PG (27-31); MCV 97.7 FL (81-99); MONO% 12.2 % (1.7-9.3); MPV 8.4 FL (7.4-10.4); PLT 264 X1000 (130-400); RBC 2.98 XMIL (4.2-5.4)
[2017-02-01] MEDS: NS 1,000 ML IV SCH ×2 (06:02→08:46)
[2017-02-01] MEDS: PRILOSEC PO SCH (06:02)
[2017-02-01 06:15] LABS: CALCIUM 9.1 mg/dL (8.8-10.2); POTASSIUM 4.8 mmol/L (3.5-5.1)
--- NOTE | 2017-02-01 08:03 | Diag Imaging Result Doc PS360 ---
EXAM: CHEST-PORTABLE INDICATION: hypoxia TECHNIQUE: One view COMPARISON: 01/31/2017 FINDINGS: There are stable small bilateral effusions. There is elevation of the left hemidiaphragm similar to the previous study and bibasilar atelectasis. The cavitary lesion mentioned on the previous radiograph was actually the gas-filled fundus of the stomach below the elevated hemidiaphragm. No new consolidations are identified. Cardiac silhouette is stable. IMPRESSION: Essentially stable chest. Electronically signed by Alfie Parrish 02/01/2017 8:00 AM
[2017-02-01] MEDS: ZEBETA PO SCH (08:44)
[2017-02-01] MEDS: LASIX PO SCH (08:45)
[2017-02-01] MEDS: FERROUS SULFATE PO SCH (08:45)
[2017-02-01] MEDS: VITAMIN D PO SCH (08:45)
[2017-02-01] MEDS: ELIQUIS PO SCH ×2 (08:45→21:22)
[2017-02-01] MEDS: CARDIZEM CD PO SCH (08:45)
[2017-02-01] MEDS: FOLTX PO SCH (08:45)
[2017-02-01] MEDS: MAG-OX PO SCH (08:45)
[2017-02-01] MEDS: TAMBOCOR PO SCH ×2 (08:45→21:20)
--- NOTE | 2017-02-01 08:54 | PROGRESS NOTE ---
DATE: 02/01/2017 HISTORY: Ms. Estrella is a 71-year-old who presented yesterday I think morning. She was complaining of shortness of breath and palpitations. A 71-year-old with a past medical history of chronic myelogenous leukemia, COPD, diabetes mellitus type 2, hypertension, and recent pacemaker placement for bradytachycardia syndrome and bradyarrhythmias. Patient did have a pacemaker placed in [place] on 01/20/2017. At [place], she was cared for by Dr. Salguero, steamblaster, who thought the patient's bradycardia might be previous related to medication of Ziac. After discontinuation of the medication, she had issues with arrhythmias and ultimately a pacemaker was placed. She presented to the emergency room because she was experiencing some shortness of breath and some palpitations. She was admitted with atrial fibrillation, rapid ventricular response. Put on a Cardizem drip. Dr. Velásquez has seen her. She does have diastolic heart failure and we started to diurese her as well. CT scan showed bilateral pleural effusions but no PTE. She feels better this morning. Feels pretty good in her words. Feels like swelling may be down a little bit subjectively in her lower extremities. PHYSICAL EXAMINATION: Vital Signs: Temperature is 97.7 degrees, pulse 65, respirations 18, blood pressure 109/66. Lungs: Clear in all lung segura. Decreased breath sounds in both bases. Cardiovascular Examination: Appears to be predominantly paced rhythm. Abdomen: Soft. Skin: Is warm and dry. Is and Os: Urine output is 4 L diuresed. LABORATORY DATA: Blood work this morning, white count 8210, hematocrit 29, platelet count 264,000. Sodium 141, potassium 4.8, chloride 103, BUN 21, creatinine 1, blood sugar 121 and 123. Chest x-ray from this morning, essentially stable chest. There are stable small bilateral pleural effusions, elevation of left hemidiaphragm similar to previous study, and bibasilar atelectasis. Cavitary lesion mentioned on the previous radiograph gas-filled fundus of the stomach below the elevated diaphragm. No new consolidation. ASSESSMENT AND PLAN: 1. Atrial fibrillation, on Cardizem, rate. She has a pacemaker in. Predominantly paced rhythm at this point. Blood pressures look good. Continue to diurese as bilateral pleural effusions. Clinically, she feels better, breathing better and comfortable. 2. Diabetes mellitus type 2. Follow blood sugars, pattern sugars with a sliding scale. 3. She is getting normal saline at 75 mL an hour. I may turn that down to 45 mL an hour. She is diuresing well. 4. She is on flecainide 50 mg by mouth twice a day. She is on Zebeta 5 mg daily. She is taking Eliquis 5 mg twice a day and still on a Cardizem drip. cc: MD Rich Spencer MD
[2017-02-01] MEDS: PATIENT'S OWN MED PO SCH ×2 (10:25→21:22)
[2017-02-02] MEDS: NS 1,000 ML IV SCH ×2 (01:18→06:32)
--- NOTE | 2017-02-02 05:40 | EKG Report ---
Test Performed on : 02/01/2017 6:30:27 PM Test Reason : Palpitations, pressure in chest Blood Pressure : / mmHG Vent. Rate : 089 BPM Atrial Rate : 090 BPM P-R Int : 000 ms QRS Dur : 072 ms QT Int : 362 ms P-R-T Axes : 000 006 -18 degrees QTc Int : 440 ms Atrial fibrillation. with frequent ventricular-paced complexes Nonspecific T wave abnormality Abnormal ECG When compared with ECG of 01-FEB-2017 07:09, (Unconfirmed) Vent. rate has increased BY 7 BPM Confirmed by Eugenia Tolbert MD ([id number]) on 02/03/2017 6:02:58 AM
--- NOTE | 2017-02-02 05:41 | EKG Report ---
Test Performed on : 02/01/2017 07:09:03 AM Test Reason : afib Blood Pressure : / mmHG Vent. Rate : 082 BPM Atrial Rate : 288 BPM P-R Int : 000 ms QRS Dur : 074 ms QT Int : 376 ms P-R-T Axes : 000 010 -12 degrees QTc Int : 439 ms Atrial fibrillation. with frequent ventricular-paced complexes Abnormal ECG When compared with ECG of 21-JAN-2017 23:23, Electronic ventricular pacemaker has replaced Sinus rhythm. Confirmed by Eugenia Tolbert MD ([id number]) on 02/03/2017 6:02:36 AM
[2017-02-02 05:59] LABS: POTASSIUM 4.7 mmol/L (3.5-5.1)
[2017-02-02] MEDS: PRILOSEC PO SCH (06:15)
--- NOTE | 2017-02-02 06:33 | EKG Report ---
Test Performed on : 01/31/2017 00:37:42 AM Test Reason : SOB Blood Pressure : / mmHG Vent. Rate : 109 BPM Atrial Rate : 141 BPM P-R Int : 000 ms QRS Dur : 082 ms QT Int : 346 ms P-R-T Axes : 000 010 022 degrees QTc Int : 465 ms Atrial fibrillation. with rapid ventricular response. Abnormal ECG No previous ECGs available Unconfirmed Result
[2017-02-02] MEDS: LASIX PO SCH (09:06)
[2017-02-02] MEDS: FERROUS SULFATE PO SCH (09:06)
[2017-02-02] MEDS: MAG-OX PO SCH (09:06)
[2017-02-02] MEDS: FOLTX PO SCH (09:06)
[2017-02-02] MEDS: VITAMIN D PO SCH (09:06)
[2017-02-02] MEDS: ELIQUIS PO SCH ×2 (09:06→21:24)
[2017-02-02] MEDS: TAMBOCOR PO SCH ×2 (09:06→21:24)
[2017-02-02] MEDS: PATIENT'S OWN MED PO SCH ×2 (10:26→21:25)
[2017-02-02] MEDS ORDERED: ZEBETA PO SCH (21:00)
[2017-02-03] MEDS: PRILOSEC PO SCH (06:16)
[2017-02-03] MEDS: ELIQUIS PO SCH (09:34)
[2017-02-03] MEDS: LASIX PO SCH (09:34)
[2017-02-03] MEDS: VITAMIN D PO SCH (09:34)
[2017-02-03] MEDS: PATIENT'S OWN MED PO SCH (09:35)
[2017-02-03] MEDS: TAMBOCOR PO SCH (09:35)
[2017-02-03] MEDS: FERROUS SULFATE PO SCH (09:35)
[2017-02-03] MEDS: MAG-OX PO SCH (09:35)
[2017-02-03] MEDS: FOLTX PO SCH (09:35)
[2017-02-03 10:21] VITALS: BP 126/60
--- NOTE | 2017-02-03 11:15 | DISCHARGE SUMMARY ---
ADMISSION DATE: 01/31/2017 DISCHARGE DATE: 02/03/2017 FINAL DIAGNOSES: 1. Recurrent atrial fibrillation with rapid ventricular response. 2. Acute diastolic congestive heart failure with early pulmonary edema. 3. Chronic obstructive lung disease on home O2. 4. Type 2 diabetes mellitus. 5. History of essential hypertension. 6. History of chronic myelogenous leukemia. 7. A recent pacemaker placement for tachybrady syndrome. PRESENT ILLNESS: The patient is a 71-year-old woman who presented to the emergency room with rapid heart rate and shortness of breath. Approximately 2-3 weeks ago, she was admitted here with bradycardia and subsequently was sent to [place] for pacemaker placement for tachy-joel syndrome. She had 1 episode of atrial fibrillation 2 weeks ago. She was discharged from [facility] in sinus rhythm and asymptomatic at home until the night of admission when her heart rate suddenly increased. PHYSICAL EXAMINATION: She is afebrile, blood pressure 120/75, heart rate variable from 65-115. She is generally comfortable in no distress. Neck: Supple with no JVD. Cardiovascular: Irregular rhythm with unremarkable S1-S2 and no murmurs. Lungs: Sounds were fairly clear. Extremities: No edema. DIAGNOSTIC DATA: Chest x-ray; Stable chest with old and pleural effusions. Pulmonary arteriogram; CT pulmonary arteriogram showed no evidence of pulmonary embolism, but she was noted to have focal ground-glass opacities in the left upper lobe and stable cardiomegaly felt to be related to mild fluid overload. Her proBNP was elevated at 1600. Electrolytes and renal function were normal. Troponin and CPKs were normal. TSH was normal. HOSPITAL COURSE: She was admitted to CICU, placed on television news producer, and heart rate was controlled with intravenous diltiazem. She was seen in consultation by Dr. Velásquez, cardiology. She was continued on the flecainide and now that she has a pacemaker, I felt it was safe to resume her bisoprolol for rate control. She had a normal left ventricular ejection fraction on echocardiogram 2 weeks prior to this admission. With this regimen, her heart rate remained in good control and her pacemaker was with the predominant rhythm with a rate of 60 per minute. She was asymptomatic without dyspnea on exertion. A CT of the chest also confirmed her previous pleural effusions were much improved, again confirming these were due to the [employer] medicine for her CML that was discontinued months ago. DISPOSITION: She is discharged in improved condition and is to return to see her ticket writer Dr. Allen in 1-2 weeks, and return to my office in 2 weeks. She was started on Eliquis twice a day and tolerated this well. Aspirin was discontinued. HOME MEDICATIONS: 1. Bisoprolol 5 mg at bedtime. 2. Furosemide 40 mg daily. 3. Acetaminophen p.r.n. 4. Eliquis 5 mg twice a day. 5. Ferrous sulfate 325 mg daily. 6. B complex and multivitamin 1 daily. 7. Tasigna 300 mg twice a day. 8. Vitamin D 2000 units daily. 9. Metformin 1000 mg at bedtime. 10. Magnesium oxide 400 mg daily. 11. Flecainide 50 mg twice a day. cc: Rich Hernandez MD
== END 2017-02-03 10:40 | disposition home or self-care (01) ==
LOC: ED 00:31 → SUATTDRO 03:51 → 3S 03:51
PROVIDERS: ADMIT Internal Medicine; ATTEND Internal Medicine